=== PATIENT | male | born 1955 | race Caucasian/White ===

== ENCOUNTER 2020-01-09 11:20 | Outpatient (CLI) | payer OTHER, SELFPAY ==
--- NOTE | 2020-01-09 11:24 | ECG_ITS ---
Measurements Intervals [place] Rate: 62 P: 29 MT: 136 QRS: -7 QRSD: 89 T: 11 QT: 395 QTc: 401 Interpretive Statements SINUS RHYTHM RSR' IN V1 OR V2, CONSIDER RIGHT VENTRICULAR HYPERTROPHY OR RIGHT VCD BASELINE ARTIFACT- I, II, III, AVR, AVL, AVF BORDERLINE ECG Electronically Signed On 01-09-2020 13:09:14 CDT by Andrés Sanchez D.O.
[2020-01-09 11:45] LABS: Basophils Absolute Auto 0.1 K/mm3 (0.0-0.1); Basophils Percent Auto 0.6 % (0.2-1.2); Eosinophils Absolute Auto 0.3 K/mm3 (0-0.3); Hematocrit 43.5 % (42.0-52.0); Hemoglobin 14.5 g/dL (14.0-18.0); Immature Granulocyte Absolute 0.03 K/mm3 (0.00-0.031); Immature Granulocyte Percent A 0.4 % (0-0.5); Lymphocytes Absolute Auto 1.77 K/mm3 (0.9-3.2); Lymphocytes Percent Auto 21.4 % (18.3-44.2); Mean Corpuscular HGB Conc 33.3 g/dl (32-36); Mean Corpuscular Hemoglobin 31.4 pg (26-34); Mean Corpuscular Volume 94.2 fl (80-100); Mean Platelet Volume 9.6 fl (7.4-10.4); Monocytes Absolute Auto 0.7 K/mm3 (0.1-0.6); Monocytes Percent Auto 8.6 % (2.6-8.5); Neutrophils Absolute Auto 5.5 K/mm3 (1.3-6.7); Platelet Count Result 317 k/mm3 (150-375); Red Blood Count 4.62 M/mm3 (4.6-6.20); Red Cell Distribution Width 12.3 % (11.5-14.5); White Blood Count 8.3 K/mm3 (4.5-10.0)
[2020-01-09 11:57] LABS: INR 1.1; Prothrombin Time 13.4 Seconds (11.1-14.7)
[2020-01-09 11:58] LABS: Partial Thromboplastin Time 25.1 SECONDS (22.3-36.8)
[2020-01-09 12:01] LABS: Blood Urea Nitrogen 16 mg/dL (9-20); Calcium 9.4 mg/dL (8.4-10.2); Carbon Dioxide 26 mmol/L (22-30); Chloride 104 mmol/L (98-107); Estimated Glomerular Filt Rate > 60; Glucose 116 mg/dL (75-110); Potassium 4.5 mmol/L (3.4-5.0); Sodium 138 mmol/L (137-145)
== END 2020-01-09 11:21 | disposition home or self-care (01) ==
LOC: ANHSURGERY 11:24
PROVIDERS: PCP Internal Medicine; Visit Provider Urology
DX: N32.9 Bladder disorder, unspecified (principal); I10 Essential (primary) hypertension; R94.31 Abnormal electrocardiogram [ECG] [EKG]
CPT/HCPCS: 36415; 80048; 85025; 85610; 85730; 93005

== ENCOUNTER 2020-01-10 00:29 | Outpatient (CLI) | payer OTHER, SELFPAY ==
[2020-01-10 18:31] LABS: SARS-CoV-2 RNA PCR Negative
== END 2020-01-10 00:30 | disposition home or self-care (01) ==
LOC: ANHCOVIDDT 00:30
PROVIDERS: PCP Internal Medicine; Visit Provider Urology
DX: Z01.812 Encounter for preprocedural laboratory examination (principal); Z11.59 Encounter for screening for other viral diseases
CPT/HCPCS: 87635; C9803; U0003

== ENCOUNTER 2020-01-13 02:02 | Day surgery (SDC) | payer OTHER, SELFPAY ==
[2020-01-08 11:51] VITALS: BMI 31.3
--- NOTE | 2020-01-12 12:40 | WPDANESEPPF ---
Anes - Initial Pre Proc Eval Procedure: Operation Date: 01/13/20 10:30 Proposed Procedures p Trans Urethral Resection Bladder Tumor - Bora Salcido MD s Possible Holmium Laser Procedure - Bora Salcido MD Date/Time: 01/12/20 12:40 Surgeon: Bora Salcido MD Pre Op Diagnosis: Bladder Lesion N32.9 Patient Data Age: 64 Gender: M Height: 1.7 m Weight: 90.72 kg Allergies Allergy/AdvReac Type Severity Reaction Status Date / Time Penicillins Allergy Unknown Unknown Verified 01/13/20 08:38 Home Medications Medication Instructions Recorded Confirmed Type Co Q-10 200 mg PO DAILY 01/08/20 01/13/20 History L. gasseri-B. bifidum-B longum 1 cap PO DAILY 01/08/20 01/13/20 History [[place]] finasteride 5 mg PO DAILY 01/08/20 01/13/20 History fluticasone furoate-vilanterol 1 inh INHALATION HS 01/08/20 01/13/20 History [Breo Ellipta] lisinopril 30 mg PO DAILY 01/08/20 01/13/20 History metformin 1,000 mg PO DAILY 01/08/20 01/13/20 History montelukast 10 mg PO DAILY 01/08/20 01/13/20 History rosuvastatin 5 mg PO DAILY 01/08/20 01/13/20 History tamsulosin 0.4 mg PO DAILY 01/08/20 01/13/20 History Patient hx anesthesia problems: none Family hx anesthesia problems: none [facility] Past Medical History Medical History (Updated 01/12/20 @ 12:42 by Be Stapleton MD) Asthma BPH (benign prostatic hyperplasia) Diabetes HTN (hypertension) Hypercholesterolemia Obesity Surgical History Surgical History (Updated 01/12/20 @ 12:42 by Be Stapleton MD) Hx of spinal surgery Lumbar Surgery L4-5 Social History Social History Smoking packs per day: 0.5 Smoking cigarettes per day: 10.0 Years smoked: 15 Smoking pack-years: 7.50 Smoking status: Former smoker Tobacco type: cigarettes Additional smoking assessment comments: last smoked 1996 Alcohol intake: current Drinks per week: 7 Alcohol use details: 1 drink wine per night Substance use type: does not use Living arrangements: with family Gender identity (if verbalized by the patient): Male Spiritual care concerns: No Anes - Eval Final PreProcedure Day of Procedure 01/12/20 12:40 Patient weight: obese Heart: regular rate and rhythm Lungs: clear to auscultation and normal air movement Airway: Mallampati scale class II Neurological: alert and oriented Last oral intake: >/= 8 hours ASA classification: III Emergent: no Anesthetic plan: proceed Anesthesia type and monitoring: general LMA Informed Consent: The patient's anesthetic plan and its attendant risks and benefits were discussed with the patient/family/POA. Questions were solicited and answers provided to the satisfaction of the patient/family/POA.
[2020-01-13] VITALS (7 sets, daily range): BP systolic 118–150; BP diastolic 70–81; PULSE 66–76; RESP 10–16; TEMP 36.3–36.9; O2SAT 97–100
--- NOTE | 2020-01-13 07:18 | WPDHPUPDATE1 ---
History and Physical Update Update Date/Time: 01/13/20 07:18 History and Physical has been reviewed, including an updated exam of the patient. There are NO changes in the patient's condition. Risks, benefits, and alternatives have been discussed and questions answered. Patient agrees to proceed with procedure.
[2020-01-13] MEDS: LACTATED RINGERS 1,000 ML 30 ML IV CONT (08:57)
[2020-01-13 09:19] LABS: Glucose Point of Care 127 (65-105)
[2020-01-13] MEDS: levoFLOXacin 500 MG/D5W 100 ML 500 MG/100 ML BAG 100 MG IVPB (09:24)
[2020-01-13] MEDS: LIDOCAINE HCL 2% GEL UROJET 10 ML PKG MUCOUS MEM (09:34)
--- NOTE | 2020-01-13 09:59 | P.OP_ITS ---
Procedure Note - Detailed Date of procedure: 01/13/20 Pre-op diagnosis: Bladder Lesion N32.9 Post-op diagnosis: same (Apparent erosion of migrated left inguinal mesh to bladder) Procedure performed: patient was taken to the operative suite and correctly identified. Once anesthesia was obtained she was placed in the dorsal lithotomy position and prepped and draped in usual sterile fashion. Twenty-two Monegasque scope was inserted in the bladder. He does have some mild lateral lobe hypert rophy and a slightly elevated median bar. Upon entering the bladder the bladder is inspected entirety. Both ureteral orifices normal anatomic position. Along the left anterior lateral wall he has a lesion measuring approximately 1 cm which is irregular in nature. He has some edema around it. It does NOT have the typical appearance of papillary carcinoma. At this point a 24 Monegasque resectoscope sheath was inserted into the bladder. The lesion was resected and sent for pathology. It was noted that it appears to me that he has some mesh that his eroded into the bladder. There was some mild purulence coming from from the area where the mesh was visualized. This would explain his recurring UTIs. 2% viscous lidocaine was inserted into the urethra and a 16 Monegasque Coronel was placed. Will need did discuss formal excision of the mesh with possible resection of a slight amount of bladder. Anesthesia: GLMA Surgeon: Broa Salcido MD Drains: Yes Packing: No Pathology: yes Complications: No immediate complications Condition: stable Disposition: PACU
[2020-01-13 10:23] LABS: Glucose Point of Care 120 (65-105)
--- NOTE | 2020-01-13 10:39 | SUR.PHASEI ---
PT AWAKE AND ALERT. DENIES PAIN. STATES MODERATE URGE TO VOID. READY TO GO TO [place] AND HAVE A DRINK. MEETS ANES DISCHARGE CRITERIA.
== END 2020-01-13 12:12 | disposition home or self-care (01) ==
PROVIDERS: PCP Internal Medicine; Visit Provider Urology
PROC: 0TBB8ZZ Excision of Bladder, Via Natural or Artificial Opening Endoscopic (ICD-10-PCS; CPT 52224; principal; 2020-01-13 09:45)
DX: N30.20 Other chronic cystitis without hematuria (principal); N32.89 Other specified disorders of bladder; T83.718A Erosion of other implanted mesh to organ or tissue, initial encounter; Y83.8 Other surgical procedures as the cause of abnormal reaction of the patient, or of later complication, without mention of misadventure at the time of the procedure; I10 Essential (primary) hypertension; E78.00 Pure hypercholesterolemia, unspecified; E11.9 Type 2 diabetes mellitus without complications; N40.0 Benign prostatic hyperplasia without lower urinary tract symptoms; J45.909 Unspecified asthma, uncomplicated; E66.9 Obesity, unspecified; Z68.31 Body mass index [BMI] 31.0-31.9, adult; Z87.891 Personal history of nicotine dependence
CPT/HCPCS: 52224; 88305; A9270; J1956; J2405; J2704; J3010; J7120

== ENCOUNTER 2020-04-27 08:33 | Outpatient (CLI) | payer OTHER, SELFPAY ==
[2020-04-27 08:52] LABS: Basophils Absolute Auto 0.1 K/mm3 (0.0-0.1); Basophils Percent Auto 0.9 % (0.2-1.2); Eosinophils Absolute Auto 0.3 K/mm3 (0-0.3); Eosinophils Percent Auto 4.4 % (0-4.4); Hematocrit 43.3 % (42.0-52.0); Hemoglobin 14.7 g/dL (14.0-18.0); Immature Granulocyte Absolute 0.02 K/mm3 (0.00-0.031); Immature Granulocyte Percent A 0.3 % (0-0.5); Lymphocytes Absolute Auto 1.81 K/mm3 (0.9-3.2); Lymphocytes Percent Auto 30.8 % (18.3-44.2); Mean Corpuscular HGB Conc 33.9 g/dl (32-36); Mean Corpuscular Hemoglobin 31.5 pg (26-34); Mean Corpuscular Volume 92.9 fl (80-100); Mean Platelet Volume 9.3 fl (7.4-10.4); Monocytes Absolute Auto 0.5 K/mm3 (0.1-0.6); Monocytes Percent Auto 8.8 % (2.6-8.5); Neutrophils Absolute Auto 3.2 K/mm3 (1.3-6.7); Neutrophils Percent Auto 54.8 % (45.5-73.1); Platelet Count Result 304 k/mm3 (150-375); Red Blood Count 4.66 M/mm3 (4.6-6.20); Red Cell Distribution Width 11.8 % (11.5-14.5); White Blood Count 5.9 K/mm3 (4.5-10.0)
[2020-04-27 09:02] LABS: INR 0.9; Prothrombin Time 12.5 Seconds (11.1-14.7)
[2020-04-27 09:03] LABS: Anion Gap 10 mmol/L (8-16); Blood Urea Nitrogen 17 mg/dL (9-20); Calcium 9.3 mg/dL (8.4-10.2); Carbon Dioxide 28 mmol/L (22-30); Chloride 104 mmol/L (98-107); Estimated Glomerular Filt Rate > 60; Glucose 121 mg/dL (75-110); Partial Thromboplastin Time 24.7 SECONDS (22.3-36.8); Potassium 4.4 mmol/L (3.4-5.0); Sodium 142 mmol/L (137-145)
== END 2020-04-27 08:34 | disposition home or self-care (01) ==
LOC: ANHSURGERY 08:34
PROVIDERS: Anesthesiology; Urology; PCP Internal Medicine; Visit Provider Surgery
DX: K42.9 Umbilical hernia without obstruction or gangrene (principal); E11.9 Type 2 diabetes mellitus without complications; N32.9 Bladder disorder, unspecified; Z01.818 Encounter for other preprocedural examination
CPT/HCPCS: 36415; 80048; 85025; 85610; 85730; 86850; 86900; 86901; 87077; 87086; 87088; 87186

== ENCOUNTER 2020-05-01 01:02 | Outpatient (CLI) | payer OTHER, SELFPAY ==
[2020-05-02 21:19] LABS: SARS-CoV-2 RNA PCR Negative
== END 2020-05-01 01:03 | disposition home or self-care (01) ==
LOC: ANHCOVIDDT 01:03
PROVIDERS: PCP Internal Medicine; Visit Provider Surgery
DX: Z01.818 Encounter for other preprocedural examination (principal); Z20.828 Contact with and (suspected) exposure to other viral communicable diseases
CPT/HCPCS: 87635; C9803; U0003

== ENCOUNTER 2020-05-05 15:16 | Observation (INO) | payer OTHER, SELFPAY ==
[2020-04-22 10:35] VITALS: BMI 32.1
[2020-05-04] VITALS (15 sets, daily range): BP systolic 130–170; BP diastolic 68–85; PULSE 58–92; RESP 10–20; TEMP 36.1–36.9; O2SAT 95–100; BMI 32.0
[2020-05-04] MEDS: KETOROLAC 15 MG/ML VIAL (*BKC) IV PUSH (07:10)
[2020-05-04] MEDS: LACTATED RINGERS 1,000 ML 30 ML IV CONT ×2 (07:10→15:10)
[2020-05-04] MEDS: ACETAMINOPHEN 500 MG TABLET 1000 MG PO (07:11)
--- NOTE | 2020-05-04 07:11 | PM.IMHP ---
H&P: HPI History of Present Illness Date/Time: 05/04/20 07:11 Chief complaint: mesh infection,umbilical hernia, hx left ing repai Narrative: Jim Browne is a 64 year old male who presents for removal of mesh that is eroding into bladder. He had a laparoscopic left inguinal hernia repair 20 years ago and about 1 year ago began experiencing UTI's that could not be cleared. Cystoscopy revealed mesh eroding into bladder. Review of Systems Review of Systems: All systems reviewed & are unremarkable except as noted in HPI and below Constitutional: Constitutional: Denies chills, Denies fever(s), Denies headache(s) and Denies weight loss Eyes: Eyes: Denies change in vision ENT: Denies dizziness, Denies headache(s), Denies neck mass and Denies throat swelling Cardiovascular: Cardiovascular: Denies chest pain, Denies lightheadedness and Denies dyspnea Respiratory: Respiratory: Denies cough, Denies dyspnea and Denies wheezing Gastrointestinal: Gastrointestinal: Denies abdominal pain, Denies change in bowel habits, Denies nausea and Denies vomiting Genitourinary: Genitourinary: Denies hematuria and Denies dysuria Musculoskeletal: Musculoskeletal: Reports as per HPI Integumentary/Breasts: Skin/Breast: Reports as per HPI Neurologic: Denies dizziness and Denies headache(s) Allergic/Immunologic: Allergic/Immunologic: Denies throat swelling and Denies wheezing PMFSH Past Medical History Medical History Asthma BPH (benign prostatic hyperplasia) Diabetes HTN (hypertension) Hypercholesterolemia Obesity Surgical History Surgical History History of cholecystectomy History of hernia repair Hx of spinal surgery Lumbar Surgery L4-5 Family History Family History Father Leukemia Mother Cerebrovascular accident Social History Social History Smoking packs per day: 0.5 Smoking cigarettes per day: 10.0 Years smoked: 15 Smoking pack-years: 7.50 Smoking status: Former smoker Tobacco type: cigarettes Additional smoking assessment comments: quit 1996 Alcohol intake: current Drinks per week: 7 Substance use type: does not use Additional occupation/education comments: [employer] Gender identity (if verbalized by the patient): Male Spiritual care concerns: No Meds Home Medications and Allergies Home Medications Medication Instructions Recorded Confirmed Type Breo Ellipta 1 inh INHALATION HS 01/08/20 05/04/20 History Co Q-10 200 mg PO DAILY 01/08/20 05/04/20 History [facility] Colon Health 1 cap PO DAILY 01/08/20 05/04/20 History finasteride 5 mg PO DAILY 01/08/20 05/04/20 History lisinopril 30 mg PO DAILY 01/08/20 05/04/20 History metformin 1,000 mg PO DAILY 01/08/20 05/04/20 History montelukast 10 mg PO DAILY 01/08/20 05/04/20 History rosuvastatin 5 mg PO DAILY 01/08/20 05/04/20 History tamsulosin 0.4 mg PO DAILY 01/08/20 05/04/20 History Allergies Allergy/AdvReac Type Severity Reaction Status Date / Time Penicillins Allergy Unknown Unknown Verified 05/04/20 06:51 sulfamethoxazole Allergy skin Verified 05/04/20 06:51 [From Bactrim] reaction, burning trimethoprim [From Bactrim] Allergy skin Verified 05/04/20 06:51 reaction, burning Exam Const: General: no acute distress and alert Orientation/consciousness: patient oriented x3 HENMT: Head: normocephalic and atraumatic Ears: hearing grossly normal bilaterally General nose exam: Normal nares present Mouth: Yes Normal oral and palatal mucosa present Eyes: Periorbital: periorbital findings normal Sclera: sclerae normal EOM: EOMs intact bilaterally Neck: Neck: normal visual inspection, no lymphadenopathy and trachea midline Chest: Chest palpation & inspection
--- NOTE | 2020-05-04 07:15 | WPDHPUPDATE1 ---
History and Physical Update Update Date/Time: 05/04/20 07:15 History and Physical has been reviewed, including an updated exam of the patient. There are NO changes in the patient's condition. Risks, benefits, and alternatives have been discussed and questions answered. Patient agrees to proceed with procedure.
--- NOTE | 2020-05-04 07:34 | PM.IMHP ---
H&P: HPI History of Present Illness Date/Time: 05/04/20 07:34 Chief complaint: mesh infection,umbilical hernia, hx left ing repai Narrative: Jim Browne is a 64 year old male with mesh invaded into bladder and right hydrocele. Review of Systems Review of Systems: All systems reviewed & are unremarkable except as noted in HPI and below PMFSH Past Medical History Medical History (Updated 05/04/20 @ 07:36 by Bora Salcido MD) Asthma BPH (benign prostatic hyperplasia) Diabetes HTN (hypertension) Hypercholesterolemia Obesity Surgical History Surgical History History of cholecystectomy History of hernia repair Hx of spinal surgery Lumbar Surgery L4-5 Family History Family History Father Leukemia Mother Cerebrovascular accident Social History Social History Smoking packs per day: 0.5 Smoking cigarettes per day: 10.0 Years smoked: 15 Smoking pack-years: 7.50 Smoking status: Former smoker Tobacco type: cigarettes Additional smoking assessment comments: quit 1996 Alcohol intake: current Drinks per week: 7 Substance use type: does not use Additional occupation/education comments: [employer], [employer] Gender identity (if verbalized by the patient): Male Spiritual care concerns: No Meds Home Medications and Allergies Home Medications Medication Instructions Recorded Confirmed Type Breo Ellipta 1 inh INHALATION HS 01/08/20 05/04/20 History Co Q-10 200 mg PO DAILY 01/08/20 05/04/20 History [facility] Colon Health 1 cap PO DAILY 01/08/20 05/04/20 History finasteride 5 mg PO DAILY 01/08/20 05/04/20 History lisinopril 30 mg PO DAILY 01/08/20 05/04/20 History metformin 1,000 mg PO DAILY 01/08/20 05/04/20 History montelukast 10 mg PO DAILY 01/08/20 05/04/20 History rosuvastatin 5 mg PO DAILY 01/08/20 05/04/20 History tamsulosin 0.4 mg PO DAILY 01/08/20 05/04/20 History Allergies Allergy/AdvReac Type Severity Reaction Status Date / Time Penicillins Allergy Unknown Unknown Verified 05/04/20 06:51 sulfamethoxazole Allergy skin Verified 05/04/20 06:51 [From Bactrim] reaction, burning trimethoprim [From Bactrim] Allergy skin Verified 05/04/20 06:51 reaction, burning Vital Signs Vital Signs - 24 hr 05/04/20 07:22 Temperature 36.2 C L Pulse Rate 58 L Respiratory Rate 18 Blood Pressure 166/82 H Pulse Oximetry 98 Exam Const: General: cooperative HENMT: Head: normal to inspection General nose exam: Normal external nose present Eyes: General: appearance normal, both eyes and all related structures Neck: Neck: normal visual inspection Resp: Effort & Inspection: normal respiratory effort Cardio: Rate: regular rate GI: Inspection: normal to inspection Assessment and Plan Assessment and plan (1) Infected hernioplasty mesh: Qualifiers: Encounter type: initial encounter Qualified Code(s): T85.79XA - Infection and inflammatory reaction due to other internal prosthetic devices, implants and grafts, initial encounter Code(s): T85.79XA - Infection and inflammatory reaction due to other internal prosthetic devices, implants and grafts, initial encounter Status: Acute Assessment and Plan: excision by Dr Apodaca and possible bladder repair by dr Salcido (2) Right hydrocele: Code(s): N43.3 - Hydrocele, unspecified Status: Acute Assessment and Plan: right hydrocelectomy
--- NOTE | 2020-05-04 07:37 | WPDHPUPDATE1 ---
History and Physical Update Update Date/Time: 05/04/20 07:37 History and Physical has been reviewed, including an updated exam of the patient. There are NO changes in the patient's condition. Risks, benefits, and alternatives have been discussed and questions answered. Patient agrees to proceed with procedure.
[2020-05-04 07:41] LABS: Glucose Point of Care 143 (65-105)
--- NOTE | 2020-05-04 08:10 | WPDANESEPP ---
Anes - Eval Pre Procedure Procedure: Operation Date: 05/04/20 08:30 Proposed Procedures p Robotic Assisted Laparoscopic Removal of Infected Left Inguinal Mesh, Possible Recurrent Left Inguinal Hernia Repair with Biologic Mesh, - DO anika Tom Umbilical Hernia Repair - DO anika Tom Cystoscopy, Trans Urethral Resection Bladder Tumor - Bora Salcido MD s Possible Holmium Laser Of Foreign Body - Bora Salcido MD s Right Hydrocelectomy - Bora Salcido MD Date/Time: 05/04/20 08:10 Preop Diagnosis: mesh infection, umbilical hernia Pre Op Diagnosis: mesh infection,umbilical hernia, hx left ing repai Patient Data Age: 64 Gender: M Height: 5 ft 7 in Weight: 92.7 kg Last Vital Signs Temp 36.2 C L 05/04/20 07:22 Pulse 58 L 05/04/20 07:22 Resp 18 05/04/20 07:22 BP 166/82 H 05/04/20 07:22 Pulse Ox 98 05/04/20 07:22 Allergies Allergy/AdvReac Type Severity Reaction Status Date / Time Penicillins Allergy Unknown Unknown Verified 05/04/20 06:51 sulfamethoxazole Allergy skin Verified 05/04/20 06:51 [From Bactrim] reaction, burning trimethoprim [From Bactrim] Allergy skin Verified 05/04/20 06:51 reaction, burning Home Medications Medication Instructions Recorded Confirmed Type Breo Ellipta 1 inh INHALATION HS 01/08/20 05/04/20 History Co Q-10 200 mg PO DAILY 01/08/20 05/04/20 History [facility] AOMi 1 cap PO DAILY 01/08/20 05/04/20 History finasteride 5 mg PO DAILY 01/08/20 05/04/20 History lisinopril 30 mg PO DAILY 01/08/20 05/04/20 History metformin 1,000 mg PO DAILY 01/08/20 05/04/20 History montelukast 10 mg PO DAILY 01/08/20 05/04/20 History rosuvastatin 5 mg PO DAILY 01/08/20 05/04/20 History tamsulosin 0.4 mg PO DAILY 01/08/20 05/04/20 History Laboratory Tests 05/04/20 07:38 POC Capillary Glucose 143 mg/dl H mg/dl (65-105) ECG: Interpretive Statements SINUS RHYTHM RSR' IN V1 OR V2, CONSIDER RIGHT VENTRICULAR HYPERTROPHY OR RIGHT VCD BASELINE ARTIFACT- I, II, III, AVR, AVL, AVF BORDERLINE ECG Electronically Signed On 01-09-2020 13:09:14 CDT by Andrés Sanchez D.O. Patient hx anesthesia problems: none Family hx anesthesia problems: none [facility] Past Medical History Medical History (Updated 05/04/20 @ 07:36 by Bora Salcido MD) Asthma BPH (benign prostatic hyperplasia) Diabetes HTN (hypertension) Hypercholesterolemia Obesity Surgical History Surgical History History of cholecystectomy History of hernia repair Hx of spinal surgery Lumbar Surgery L4-5 Family History Family History Father Leukemia Mother Cerebrovascular accident Social History Social History Smoking packs per day: 0.5 Smoking cigarettes per day: 10.0 Years smoked: 15 Smoking pack-years: 7.50 Smoking status: Former smoker Tobacco type: cigarettes Additional smoking assessment comments: quit 1996 Alcohol intake: current Drinks per week: 7 Substance use type: does not use Additional occupation/education comments: [employer] Gender identity (if verbalized by the patient): Male Spiritual care concerns: No Exam Day of Procedure 05/04/20 08:10
--- NOTE | 2020-05-04 08:18 | P.PNAN_ITS ---
Anes - Eval Final PreProcedure Day of Procedure 05/04/20 08:18 Patient weight: obese Heart: regular rate and rhythm Lungs: clear to auscultation Airway: Mallampati scale class II Neurological: alert and oriented Last oral intake: >/= 8 hours ASA classification: III Emergent: no Anesthetic plan: proceed Anesthesia type and monitoring: general ETT and standard monitoring Informed Consent: The patient's anesthetic plan and its attendant risks and be nefits were discussed with the patient/family/POA. Questions were solicited and answers provided to the satisfaction of the patient/family/POA.
[2020-05-04] MEDS: ceFAZolin 2 GM/D5W 50 ML 2 GM/50 ML BAG IVPB (08:27)
[2020-05-04] MEDS: ceFAZolin SODIUM 1 GM VIAL IV PUSH (12:29)
[2020-05-04] MEDS: LIDOCAINE HCL 1% LOCAL INJ 20 ML VIAL 50 ML INFILTRATE (14:36)
--- NOTE | 2020-05-04 14:50 | PM.PROC ---
Procedure Note - Detailed Date of procedure: 05/04/20 Pre-op diagnosis: mesh infection,umbilical hernia, hx left ing repai Post-op diagnosis: other (Recurrent Indirect LIH, Direct RIH, Umbilical hernia, Left cord lipoma, Infected inguinal hernia mesh) Procedure performed: 1. Robotic assisted laparoscopic removal of infected left inguinal hernia mesh 2. Robotic assisted laparoscopic repair of recurrent left inguinal hernia with Phasix ST mesh 3. Robotic assisted laparoscopic repair of right inguinal hernia with Phasix ST mesh 4. Open umbilical hernia repair Description of procedure: Procedure as well as risks, benefits, and alternatives were discussed with the patient. Written consent was obtained and placed in chart prior to procedure. Patient was brought back to surgical suite. He was placed supine on operating table. Time-out was done to confirm patient and procedure. His abdomen was then prepped and draped in sterile fashion using chlorhexidine prep. His scrotum and penis was prepped with Betadine prep. An 8 mm incision was made in the left lateral abdomen and a 5 mm Optiview trocar was advanced through the abdominal layers under direct visualization. Once inside the abdominal cavity, carbon dioxide insufflation was used to create a pneumoperitoneum. The abdomen was inspected and no significant abnormalities were identified. An 8 mm incision was made in the right lateral abdomen and an 8 mm trocar was inserted under direct visualization. Another 8 mm incision was made in the supraumbilical region and an 8 mm trocar was inserted under direct visualization. A 5 mm incision was then made in the left upper quadrant and a 5 mm port was placed as an assist port in this location. The patient was placed in Trendelenburg position. The area of the prior left inguinal hernia repair was identified and there was some sigmoid colon scarred up to this location. The robotic arms were brought up to the patient's bedside and secured to the ports. The camera and instruments were then inserted and then I moved over to the robotic console. I carefully inspected the abdominal cavity. The sigmoid colon was densely adherent up to the area of the prior left inguinal hernia repair. This was carefully taken down using blunt dissection and sharp dissection with scissors and electrocautery. Care was taken not to injure the bowel while dissecting this. Eventually the sigmoid colon was able to be completely taken down from this area. I then began creating a preperitoneal pocket to enter into the space of Retzius and develop a plane where the prior hernia repair had been performed. Care was taken to identify the bladder and carefully take this down as I dissected caudally toward the pubic arch and Mehrdad's ligament. I then also identified the inferior epigastric vessels and continued this dissection along the preperitoneal plane to dissect the mesh free from the inferior epigastric vessels and cord contents. With careful dissection I was able to completely free the mesh up from the myopectineal orifice. I then had to carefully dissect the mesh free from the left side of the dome of the bladder. There were several metal clips around this area that had to be removed as well. Using scissors with electrocautery, I was able to carefully free up the mesh from most of the bladder. I then identified the location on the left side of the dome of the bladder where the mesh was completely eroding into the lumen of the bladder. The mesh was dissected free from this location which left a 2 cm x 3 cm hole in the bladder. The bladder was filled with saline through the Coronel catheter and this was clearly evident that it was leaking from this location. The mesh was placed in an Endo-Catch bag to remove at the end of the procedure. At this point, Dr. Salcido then proceeded with repair of the cystotomy. Please refer to his operative report for details. After the bladder was repaired, I then resumed m
--- NOTE | 2020-05-04 15:00 | PM.PROC ---
Procedure Note - Detailed Date of procedure: 05/04/20 Pre-op diagnosis: mesh infection,umbilical hernia, hx left ing repai right hydrocele Post-op diagnosis: same Procedure performed: Robotic assisted closure of cystotomy, right hydrocelectomy, right orchiopexy Description of procedure: Patient has a known mesh infection with involvement of the lateral aspect of the bladder. He also has a known right hydrocele. He is to undergo exploration with robotic assisted removal of this mesh by Dr. Apodaca as well as umbilical hernia repair. I will then proceed with closure of the cystotomy as well as the right hydrocelectomy and orchiopexy. Patient was taken to the operative suite and correctly identified by Dr. Shanti harris. He went ahead and then placed on the robotic ports and did his portion the procedure with excision of the mesh. At that point time there was noted to be a cystotomy where the mesh had involved the bladder. We went ahead and closed in 3 layers. The 1st layer was with a 2 0 Vicryl. Second layer and 3rd layers were with V lock sutures. It was noted that he had another small cystotomy just lateral to this larger 1. This measured approximately a cm. This also was closed in 2 layers using 2 0 Vicryl. There appeared to be good approximation of the mucosa as well as muscularis of the bladder. Patient had been filled with 250 cc is normal saline. There was no evidence of any gross extravasation. Coronel catheter was in place. Dr. Moser. Then completed his hernia repair as well as umbilical hernia repair. After that was completed I performed the hydrocelectomy by prepped and draped in the right hemiscrotum sterile fashion. Transverse incision was made carried down to the tunica layers. The hydrocele sac was then brought out into the operative field. It was incised. 200 cc of straw-colored fluid was removed. We excised the extra sac. Edges were fulgurated. We placed 1/4 inch Michael drain into the right hemiscrotum. We then did an orchiopexy using 3 0 Monocryl. Stitches were placed along the medial lateral and inferior aspect of the testicle. Tunica was then closed using 3 0 chromic. Skin was also closed through 0 chromic in a running fashion. Anesthetized the skin using 1% lidocaine. Lap count needle count sponge counts were correct at termination my portion of the procedure. Anesthesia: GETA Surgeon: Bora Salcido MD Drains: Yes Packing: No Pathology: yes Complications: No immediate complications Condition: stable Disposition: PACU
[2020-05-04] MEDS: fentaNYL CITRATE INJ (*CRX) 100 MCG/2 ML VIAL 25 MCG IV PUSH ×4 (15:40→16:00)
[2020-05-04 15:45] LABS: Glucose Point of Care 142 (65-105)
[2020-05-04] MEDS: HYDROcodone/acetaminophen (*CRX) 5-325 MG TABLET 1 TAB PO (17:59)
[2020-05-04] MEDS: LACTATED RINGERS 1,000 ML 100 ML IV CONT (17:59)
[2020-05-04 21:34] LABS: Glucose Point of Care 181 (65-105)
[2020-05-04] MEDS: HYDROcodone/acetaminophen (*CRX) 7.5-325 MG TABLET 1 TAB PO (21:41)
[2020-05-05] VITALS (7 sets, daily range): BP systolic 119–151; BP diastolic 59–67; PULSE 77–89; RESP 16–20; TEMP 36.3–37.1; O2SAT 92–96
[2020-05-05] MEDS: HYDROcodone/acetaminophen (*CRX) 7.5-325 MG TABLET 1 TAB PO ×2 (03:56→09:04)
[2020-05-05 06:27] LABS: Anion Gap 5 mmol/L (8-16); Blood Urea Nitrogen 15 mg/dL (9-20); Calcium 8.5 mg/dL (8.4-10.2); Carbon Dioxide 28 mmol/L (22-30); Chloride 104 mmol/L (98-107); Estimated CRCL calculation 80 ml/min; Estimated Glomerular Filt Rate > 60; Glucose 134 mg/dL (75-110); Potassium 4.4 mmol/L (3.4-5.0); Sodium 137 mmol/L (137-145)
[2020-05-05 06:29] LABS: Hematocrit 37.8 % (42.0-52.0); Hemoglobin 12.7 g/dL (14.0-18.0); Mean Corpuscular HGB Conc 33.6 g/dl (32-36); Mean Corpuscular Hemoglobin 31.1 pg (26-34); Mean Corpuscular Volume 92.6 fl (80-100); Mean Platelet Volume 9.6 fl (7.4-10.4); Platelet Count Result 281 k/mm3 (150-375); Red Blood Count 4.08 M/mm3 (4.6-6.20); Red Cell Distribution Width 12.2 % (11.5-14.5); White Blood Count 10.8 K/mm3 (4.5-10.0)
--- NOTE | 2020-05-05 07:50 | WPDANESPN ---
Anes - Prog Note Post-Op Date/Time: 05/05/20 07:50 Cardiovascular status: normal Respiratory status: normal Airway patency: baseline Mental status: baseline Post-Op hydration status: normal Vital Signs: Last Vital Signs Temp 37.1 C 05/05/20 02:00 Pulse 82 05/05/20 02:00 Resp 16 05/05/20 02:00 BP 134/61 05/05/20 02:00 Pulse Ox 95 05/05/20 02:00 Pain Score (VAS): 5 I/O: Intake & Output 05/04/20 05/04/20 05/05/20 15:59 23:59 07:59 Intake Total 50 700 1000 Output Total 100 40 Balance -50 700 960 Laboratory Tests 05/05/20 05:19 05/05/20 05:19 05/04/20 05/04/20 05/05/20 15:42 21:24 05:19 WBC 10.8 H RBC 4.08 L Hgb 12.7 L Hct 37.8 L MCV 92.6 MCH 31.1 MCHC 33.6 RDW 12.2 Plt Count 281 MPV 9.6 Sodium Potassium Chloride Carbon Dioxide Anion Gap BUN Creatinine Estim Creat Clear Calc Estimated GFR Glucose POC Capillary Glucose 142 H 181 H Calcium 05/05/20 05:19 WBC RBC Hgb Hct MCV MCH MCHC RDW Plt Count MPV Sodium 137 Potassium 4.4 Chloride 104 Carbon Dioxide 28 Anion Gap 5 L BUN 15 Creatinine 0.90 Estim Creat Clear Calc 80 Estimated GFR > 60 Glucose 134 H POC Capillary Glucose Calcium 8.5 Post-procedural complaints: none Patient Feedback: Patient satisfied with anesthetic care.
[2020-05-05] MEDS: ENOXAPARIN 40 MG/0.4 ML SYRINGE SUB-Q (08:47)
[2020-05-05] MEDS: lisinopriL 10 MG TABLET 30 MG PO (08:47)
[2020-05-05] MEDS: ROSUVASTATIN 5 MG TABLET PO (08:47)
[2020-05-05] MEDS: MONTELUKAST SODIUM 10 MG TABLET PO (08:48)
[2020-05-05] MEDS: TAMSULOSIN HCL 0.4 MG CAPSULE PO (08:48)
[2020-05-05] MEDS: FINASTERIDE 5 MG TABLET PO (08:48)
[2020-05-05] MEDS: metFORMIN HCL XR 500 MG TAB.SR.24H 1000 MG PO (08:48)
--- NOTE | 2020-05-05 09:12 | PM.PNGS ---
Progress Note: A&P Assessment and Plan (1) Umbilical hernia: Qualifiers: Obstruction and gangrene presence: without obstruction or gangrene Qualified Code(s): K42.9 - Umbilical hernia without obstruction or gangrene Code(s): K42.9 - Umbilical hernia without obstruction or gangrene Status: Acute Assessment and Plan: Will add Ibuprofen to help with pain control. Slowly increase activity. Will reassess later today. Could go home if pain better controlled. (2) Infected hernioplasty mesh: Qualifiers: Encounter type: initial encounter Qualified Code(s): T85.79XA - Infection and inflammatory reaction due to other internal prosthetic devices, implants and grafts, initial encounter Code(s): T85.79XA - Infection and inflammatory reaction due to other internal prosthetic devices, implants and grafts, initial encounter Status: Acute (3) Recurrent left inguinal hernia: Code(s): K40.91 - Unilateral inguinal hernia, without obstruction or gangrene, recurrent Status: Acute (4) Right inguinal hernia: Code(s): K40.90 - Unilateral inguinal hernia, without obstruction or gangrene, not specified as recurrent Status: Acute Subjective Subjective Date/Time Seen: 05/05/20 09:12 Pain still persists. Otherwise doing well. Coronel in place. Exam GI: Inspection: incision (C/D/I) and other (KJ serosanguinous) GI Palp: Yes Tenderness to palpation present (GI) (incisional) Objective Data Vital Signs Vital Signs: Vital Signs - 24 hr 05/04/20 15:10 05/04/20 15:25 05/04/20 15:40 Temperature 36.6 C Pulse Rate 81 73 78 Respiratory Rate 10 L 11 L 13 Blood Pressure 130/72 158/76 H 161/82 H Pulse Oximetry 100 100 96 05/04/20 15:59 05/04/20 16:15 05/04/20 16:30 Temperature Pulse Rate 66 70 76 Respiratory Rate 12 12 14 Blood Pressure 151/82 H 155/85 H 152/78 H Pulse Oximetry 95 97 96 05/04/20 16:45 05/04/20 17:15 05/04/20 17:45 Temperature 36.1 C L 36.2 C L Pulse Rate 68 80 89 Respiratory Rate 12 18 18 Blood Pressure 149/71 H 170/74 H 170/77 H Pulse Oximetry 98 97 98 05/04/20 18:15 05/04/20 18:22 05/04/20 20:40 Temperature 36.2 C L Pulse Rate 92 Respiratory Rate 18 Blood Pressure 156/80 H Pulse Oximetry 99 99 98 05/04/20 22:00 05/04/20 22:47 05/05/20 02:00 Temperature 36.9 C 36.9 C 37.1 C Pulse Rate 90 90 82 Respiratory Rate 20 20 16 Blood Pressure 153/68 H 153/68 H 134/61 Pulse Oximetry 98 98 95 05/05/20 06:00 Temperature 36.9 C Pulse Rate 81 Respiratory Rate 18 Blood Pressure 125/60 Pulse Oximetry 95 Intake/Output Intake/Output: Intake & Output 05/02/20 05/03/20 05/04/20 05/05/20 23:59 23:59 23:59 23:59 Intake Total 750 1700 Output Total 100 1240 Balance 650 460 Meds/Results Medications: Active Medications Generic Name Dose Route Start Last Admin Trade Name Freq PRN Reason Stop Dose Admin Acetaminophen 650 mg 05/04/20 17:02 Acetaminophen 325 Mg Tablet PO Q6H PRN Mild Pain (1-3) or Fever Hydrocodone Bitart/Acetaminophen 1 tab 05/04/20 17:02 05/04/20 17:59 Hydrocodone/Acetaminophen (*Crx) 5-325 Mg Tablet PO 1 tab Q4H PRN Administration Pain Rated 4-6 Hydrocodone Bitart/Acetaminophen 1 tab 05/04/20 17:02 05/05/20 09:04 Hydrocodone/Acetaminophen (*Crx) 7.5-325 Mg Tablet PO 1 tab Q4H PRN Administration Pain Rated 7-10 Budesonide/Formoterol Fumarate 2 puff 05/04/20 20:00 05/04/20 20:37 Budesonide/Form 160-4.5 Mcg (*Sp) INHALATION 2 puff Q12HRT JULIAN Administration Enoxaparin Sodium 40 mg 05/05/20 09:00 05/05/20 08:47 Enoxaparin 40 Mg/0.4 Ml Syringe SUB-Q 40 mg DAILY JULIAN Administration Finasteride 5 mg 05/05/20 09:00 05/05/20 08:48 Finasteride 5 Mg Tablet PO 5 mg DAILY JULIAN Administration Ibuprofen 800 mg 05/05/20 09:15 Ibuprofen 400 Mg Tablet PO Q8H JULIAN Lisinopril 30 mg 05/05/20 09:00 05/05/20 08:47
[2020-05-05 09:25] LABS: Glucose Point of Care 137 (65-105)
[2020-05-05 12:58] LABS: Glucose Point of Care 125 (65-105)
[2020-05-05] MEDS: IBUPROFEN 400 MG TABLET 800 MG PO ×2 (12:58→21:41)
[2020-05-05] MEDS: HYDROcodone/acetaminophen (*CRX) 5-325 MG TABLET 1 TAB PO (12:59)
--- NOTE | 2020-05-05 12:59 | WPDUROPN2 ---
Progress Note: A&P Assessment and Plan (1) Recurrent left inguinal hernia: Code(s): K40.91 - Unilateral inguinal hernia, without obstruction or gangrene, recurrent Status: Acute Assessment and Plan: status post excision of infected mesh with repair of left inguinal hernia and closure of cystotomy. Progressing well overall but still with some discomfort. May require another night stay. Send KJ fluid for urine creatinine. Make decision regarding removal prior to discharge. Coronel catheter will need to stay in a minimum of 10 days with follow-up catheter cystogram. (2) Right hydrocele: Code(s): N43.3 - Hydrocele, unspecified Status: Acute Assessment and Plan: Status post right hydrocelectomy. Continue with Michael drain for the time being. Patient will be able to remove that at home the next day or 2 if minimal drainage. Subjective Subjective Date/Time Seen: 05/05/20 12:59 Post Op day: 1 Principal diagnosis: Infected hernia mesh involving bladder Interval history: postop day 1. robotic assisted excision of infected mesh with hernia repair closure of cystotomy as well as right hydrocelectomy. Not surprisingly still having some abdominal discomfort. Coronel is draining clear urine at this time Review of Systems Review of Systems: All systems reviewed & are unremarkable except as noted in HPI and below Exam GI: GI Palp: Yes Soft to palpation ( slightly distended) Objective Data Vital Signs Vital Signs: Vital Signs - 24 hr 05/04/20 15:10 05/04/20 15:25 05/04/20 15:40 Temperature 36.6 C Pulse Rate 81 73 78 Respiratory Rate 10 L 11 L 13 Blood Pressure 130/72 158/76 H 161/82 H Pulse Oximetry 100 100 96 05/04/20 15:59 05/04/20 16:15 05/04/20 16:30 Temperature Pulse Rate 66 70 76 Respiratory Rate 12 12 14 Blood Pressure 151/82 H 155/85 H 152/78 H Pulse Oximetry 95 97 96 05/04/20 16:45 05/04/20 17:15 05/04/20 17:45 Temperature 36.1 C L 36.2 C L Pulse Rate 68 80 89 Respiratory Rate 12 18 18 Blood Pressure 149/71 H 170/74 H 170/77 H Pulse Oximetry 98 97 98 05/04/20 18:15 05/04/20 18:22 11/10/20 20:40 Temperature 36.2 C L Pulse Rate 92 Respiratory Rate 18 Blood Pressure 156/80 H Pulse Oximetry 99 99 98 05/04/20 22:00 05/04/20 22:47 05/05/20 02:00 Temperature 36.9 C 36.9 C 37.1 C Pulse Rate 90 90 82 Respiratory Rate 20 20 16 Blood Pressure 153/68 H 153/68 H 134/61 Pulse Oximetry 98 98 95 05/05/20 06:00 05/05/20 09:24 05/05/20 09:57 Temperature 36.9 C 36.7 C Pulse Rate 81 80 77 Respiratory Rate 18 18 Blood Pressure 125/60 151/67 H Pulse Oximetry 95 94 95 Intake/Output Intake/Output: Intake & Output 05/02/20 05/03/20 05/04/20 05/05/20 23:59 23:59 23:59 23:59 Intake Total 750 1940 Output Total 100 1240 Balance 650 700 Meds/Results Medications: Active Medications Generic Name Dose Route Start Last Admin Trade Name Freq PRN Reason Stop Dose Admin Acetaminophen 650 mg 05/04/20 17:02 Acetaminophen 325 Mg Tablet PO Q6H PRN Mild Pain (1-3) or Fever Hydrocodone Bitart/Acetaminophen 1 tab 05/04/20 17:02 05/04/20 17:59 Hydrocodone/Acetaminophen (*Crx) 5-325 Mg Tablet PO 1 tab Q4H PRN Administration Pain Rated 4-6 Hydrocodone Bitart/Acetaminophen 2 tab 05/05/20 12:46 Hydrocodone/Acetaminophen (*Crx) 5-325 Mg Tablet PO Q4H PRN Pain Rated 7-10 Budesonide/Formoterol Fumarate 2 puff 05/04/20 20:00 05/05/20 09:24 Budesonide/Form 160-4.5 Mcg (*Sp) INHALATION 2 puff Q12HRT JULIAN Administration Enoxaparin Sodium 40 mg 05/05/20 09:00 05/05/20 08:47 Enoxaparin 40 Mg/0.4 Ml Syringe SUB-Q 40 mg DAILY JULIAN Administration Finasteride 5 mg 05/05/20 09:00 05/05/20 08:48 Finasteride 5 Mg Tablet PO 5 mg DAILY JULIAN Administration Ibuprofen 800 mg 05/05/20 13:00 Ibuprofen 400 Mg Tablet PO Q8HR JULIAN Lisinopril 30 mg 05/05/20 09:00 05/05/20
[2020-05-05 14:05] LABS: Creatinine Urine < 3.2 mg/dL
[2020-05-05] MEDS: HYDROcodone/acetaminophen (*CRX) 5-325 MG TABLET 2 TAB PO (20:05)
[2020-05-05 23:29] LABS: Glucose Point of Care 136 (65-105)
[2020-05-06 06:00] VITALS: BP 139/64; PULSE 70; RESP 18; TEMP 36.7; O2SAT 96
--- NOTE | 2020-05-06 06:11 | WPDUROPN2 ---
Progress Note: A&P Assessment and Plan (1) Right hydrocele: Code(s): N43.3 - Hydrocele, unspecified Status: Acute Assessment and Plan: The minimal to no drainage from Crowder. We will remove Crowder today. Instructed on ice pack to scrotum. (2) Infected hernioplasty mesh: Qualifiers: Encounter type: initial encounter Qualified Code(s): T85.79XA - Infection and inflammatory reaction due to other internal prosthetic devices, implants and grafts, initial encounter Code(s): T85.79XA - Infection and inflammatory reaction due to other internal prosthetic devices, implants and grafts, initial encounter Status: Acute Assessment and Plan: Status post excision with hernia repair as well as closure of cystotomy. Will DC KJ later this afternoon prior to discharge. Patient is to go home with Coronel catheter and will have a catheter cystogram scheduled in about 10 days. Would like patient to be on a prophylactic antibiotic such as Bactrim 1 pill daily until the catheter comes out. Subjective Subjective Date/Time Seen: 05/06/20 06:11 Post Op day: 2 Principal diagnosis: Robbie Brock mesh invading bladder, right hydrocele recurrent inguinal herni Interval history: Doing much better today regarding pain control. KJ with minimal drainage. Creatinine more consistent with a serous type consistency. Review of Systems Review of Systems: All systems reviewed & are unremarkable except as noted in HPI and below Exam Const: General: cooperative GI: GI Palp: Yes Soft to palpation : Scrotum: scrotal swelling Urinary Catheter: Urinary Catheter: patent and draining and urine clear Objective Data Vital Signs Vital Signs: Vital Signs - 24 hr 05/05/20 09:24 05/05/20 10:00 05/05/20 14:00 Temperature 36.7 C 37.0 C Pulse Rate 80 77 89 Respiratory Rate 18 20 Blood Pressure 151/67 H 119/59 L Pulse Oximetry 94 95 92 05/05/20 21:02 05/05/20 22:00 Temperature 36.3 C L Pulse Rate 80 87 Respiratory Rate 20 18 Blood Pressure 143/64 H Pulse Oximetry 95 96 Intake/Output Intake/Output: Intake & Output 05/03/20 05/04/20 05/05/20 05/06/20 23:59 23:59 23:59 23:59 Intake Total 750 3520 Output Total 100 2685 Balance 650 835 Meds/Results Medications: Active Medications Generic Name Dose Route Start Last Admin Trade Name Freq PRN Reason Stop Dose Admin Acetaminophen 650 mg 05/04/20 17:02 Acetaminophen 325 Mg Tablet PO Q6H PRN Mild Pain (1-3) or Fever Hydrocodone Bitart/Acetaminophen 1 tab 05/04/20 17:02 05/05/20 12:59 Hydrocodone/Acetaminophen (*Crx) 5-325 Mg Tablet PO 1 tab Q4H PRN Administration Pain Rated 4-6 Hydrocodone Bitart/Acetaminophen 2 tab 05/05/20 12:46 05/05/20 20:05 Hydrocodone/Acetaminophen (*Crx) 5-325 Mg Tablet PO 2 tab Q4H PRN Administration Pain Rated 7-10 Budesonide/Formoterol Fumarate 2 puff 05/04/20 20:00 05/05/20 20:48 Budesonide/Form 160-4.5 Mcg (*Sp) INHALATION 2 puff Q12HRT JULIAN Administration Enoxaparin Sodium 40 mg 05/05/20 09:00 05/05/20 08:47 Enoxaparin 40 Mg/0.4 Ml Syringe SUB-Q 40 mg DAILY JULIAN Administration Finasteride 5 mg 05/05/20 09:00 05/05/20 08:48 Finasteride 5 Mg Tablet PO 5 mg DAILY JULIAN Administration Ibuprofen 800 mg 05/05/20 13:00 05/05/20 21:41 Ibuprofen 400 Mg Tablet PO 800 mg Q8HR JULIAN Administration Lisinopril 30 mg 05/05/20 09:00 05/05/20 08:47 Lisinopril 10 Mg Tablet PO 30 mg DAILY JULIAN Administration Metformin HCl 1,000 mg 05/05/20 09:00 05/05/20 08:48 Metformin Hcl Xr 500 Mg Tab.Sr.24h PO 1,000 mg DAILY JULIAN Administration Montelukast Sodium 10 mg 05/05/20 09:00 05/05/20 08:48 Montelukast Sodium 10 Mg Tablet PO 10 mg DAILY JULIAN Administration Morphine Sulfate 2 mg 05/04/20 17:02 Morphine Sulfate (*Crx) 2 Mg/Ml Inj IV PUSH Q2H PRN Pain Rated 4-6 Morphine Sulfate 4 mg
[2020-05-06] MEDS: IBUPROFEN 400 MG TABLET 800 MG PO (06:39)
[2020-05-06 07:45] LABS: Glucose Point of Care 121 (65-105)
[2020-05-06] MEDS: FINASTERIDE 5 MG TABLET PO (09:46)
[2020-05-06] MEDS: lisinopriL 10 MG TABLET 30 MG PO (09:46)
[2020-05-06] MEDS: ENOXAPARIN 40 MG/0.4 ML SYRINGE SUB-Q (09:46)
[2020-05-06] MEDS: ROSUVASTATIN 5 MG TABLET PO (09:47)
[2020-05-06] MEDS: metFORMIN HCL XR 500 MG TAB.SR.24H 1000 MG PO (09:47)
[2020-05-06] MEDS: MONTELUKAST SODIUM 10 MG TABLET PO (09:47)
[2020-05-06] MEDS: TAMSULOSIN HCL 0.4 MG CAPSULE PO (09:47)
--- NOTE | 2020-05-06 10:16 | PM.DS ---
DS: Admitting Diagnosis Admitting Diagnosis Admitting Diagnosis: mesh infection,umbilical hernia, hx left ing repai DS: Discharge Diagnosis Discharge Diagnosis (1) Infected hernioplasty mesh: Qualifiers: Encounter type: initial encounter Qualified Code(s): T85.79XA - Infection and inflammatory reaction due to other internal prosthetic devices, implants and grafts, initial encounter Code(s): T85.79XA - Infection and inflammatory reaction due to other internal prosthetic devices, implants and grafts, initial encounter Status: Acute (2) Chronic UTI: Code(s): N39.0 - Urinary tract infection, site not specified Status: Acute (3) Recurrent left inguinal hernia: Code(s): K40.91 - Unilateral inguinal hernia, without obstruction or gangrene, recurrent Status: Acute (4) Right inguinal hernia: Code(s): K40.90 - Unilateral inguinal hernia, without obstruction or gangrene, not specified as recurrent Status: Acute (5) Right hydrocele: Code(s): N43.3 - Hydrocele, unspecified Status: Acute (6) Body mass index (bmi) 32.0-32.9, adult: Code(s): Z68.32 - Body mass index [BMI] 32.0-32.9, adult Status: Acute DS: Summary Hospital Course Reason for hospitalization: Hernioplasty mesh infection and erosion into bladder, recurrent left inguinal hernia, right inguinal hernia, umbilical hernia, right hydrocele Hospital Course: This is a 64-year-old man who presented for surgical removal of infected hernioplasty mesh that was eroding into his bladder. He has a history of laparoscopic left inguinal hernia repair with mesh in 1998. He had been experiencing hematuria and recurrent UTIs over the past year and was ultimately found to have mesh eroding into the bladder. He was taken to surgery on 05/04/2020. He underwent a complex robotic procedure to remove the mesh and repair the bladder. He also had a recurrent left inguinal hernia repaired and right inguinal hernia repaired robotically. Umbilical hernia repair was also performed and right hydrocelectomy. Due to the length and complexity of the procedure he was admitted to the hospital postoperatively. In indwelling Coronel catheter was kept in place due to the bladder repair and a KJ drain was placed near the location of the bladder repair. On postop day 1 his KJ drain was appearing to be minimal serosanguineous output and Coronel catheter was draining well. He was still having a significant amount of lower abdominal and pelvic pain. He was having difficulty getting up out of bed without a significant amount of assistance. His pain meds were adjusted to hopefully improve his pain control. On postop day 2 he was feeling much better. Coronel was still draining and appeared to be clear yellow urine. KJ was minimal serosanguineous output. Pain was much better controlled. His KJ drain was removed on postop day 2 and he was discharged home. Status at Discharge Functional status at discharge: independent ambulation Overall status at discharge: patient is progressing back to baseline Time Spent with Patient Time attestation: Total time spent providing and/or coordinating discharge services: Time spent: Less than 30 minutes Exam Const: General: comfortable and no acute distress Orientation/consciousness: patient oriented x3 Resp: Effort & Inspection: normal respiratory effort Cardio: Rate: regular rate Rhythm: regular rhythm GI: Inspection: incision (C/D/I) and other (KJ serosanguinous) GI Palp: Yes Tenderness to palpation present (GI) (incisional) : Scrotum: scrotal swelling diffuse Urinary Catheter: Urinary Catheter: patent and draining and urine clear DS: Data Data Completed and Pending Pending studies at discharge: Pending at discharge 05/04/20 14:02 Surgical [PTH] Routine Surgical [PTH] Routine Labs on day of discharge: Labs from last 24 hours 05/06/20 05/05/20 05/05/20 06:40 21:59 13:06 POC C
[2020-05-06] MEDS: HYDROcodone/acetaminophen (*CRX) 5-325 MG TABLET 1 TAB PO (11:03)
[2020-05-06 11:46] LABS: Glucose Point of Care 142 (65-105)
== END 2020-05-06 13:50 | disposition home or self-care (01) ==
LOC: ANHSURGERY 15:19 → ANH2MED 15:19
PROVIDERS: Urology; Admitting Provider Surgery; PCP Internal Medicine; Visit Provider Surgery
PROC: 8E0Y4CZ Robotic Assisted Procedure of Lower Extremity, Percutaneous Endoscopic Approach (ICD-10-PCS; CPT 49650; principal; 2020-05-04 08:30)
PROC: (CPT 49650; 2020-05-04 08:30)
PROC: (CPT 55040; 2020-05-04 08:30)
DX: K42.9 Umbilical hernia without obstruction or gangrene (principal); K40.91 Unilateral inguinal hernia, without obstruction or gangrene, recurrent; T85.79XA Infection and inflammatory reaction due to other internal prosthetic devices, implants and grafts, initial encounter; D17.6 Benign lipomatous neoplasm of spermatic cord; N43.3 Hydrocele, unspecified; N40.0 Benign prostatic hyperplasia without lower urinary tract symptoms; J45.909 Unspecified asthma, uncomplicated; E11.9 Type 2 diabetes mellitus without complications; I10 Essential (primary) hypertension; E78.00 Pure hypercholesterolemia, unspecified; E66.9 Obesity, unspecified; Z68.32 Body mass index [BMI] 32.0-32.9, adult; Z87.891 Personal history of nicotine dependence
CPT/HCPCS: 49650; 49651; 54640; 55040; 49585; 51999; S2900; 36415; 80048; 82570; 85027; 88300; 88302; 94640; A9270; G0378; J0690; J1100; J1170; J1650; J1885; J2250; J2405; J2704; J2710; J3010; J7030; J7120; Q9968

== ENCOUNTER 2020-05-13 12:34 | Outpatient (CLI) | payer OTHER, SELFPAY ==
--- NOTE | ~2020-05-13 | XR_ITS ---
EXAMINATION: XR cystogram EXAM DATE: 05/13/2020 13:04 INDICATION: Lesion of bladder. TECHNIQUE: Cystogram performed through Coronel catheter in place on patient arrival with saline Omnipa que 350 solution. Dose reduction digital pulsed fluoroscopy was used at 4 frames per second with DAP 10 Gycm2. No prior study for comparison. FINDINGS: Patient tolerated approximately 300 mL of contrast distention. The bladder has normal appea katie without trabeculation, extravasation or ureteral reflux. IMPRESSION: Normal cystogram Reviewed, dictated and finalized at location A. RESS MACHINE OPERATOR IMPRESSION: Normal cystogram
== END 2020-05-13 12:35 | disposition home or self-care (01) ==
LOC: ANHIMG 12:37
PROVIDERS: PCP Internal Medicine; Visit Provider Urology
DX: N32.9 Bladder disorder, unspecified (principal)
CPT/HCPCS: 51600; 74430; Q9967

== ENCOUNTER 2020-05-19 15:47 | Inpatient (IN) | payer OTHER, SELFPAY ==
[2020-05-19] VITALS (31 sets, daily range): BP systolic 129–165; BP diastolic 65–91; PULSE 78–114; RESP 12–20; TEMP 36.3–38.3; O2SAT 97–99; BMI 32.3
--- NOTE | ~2020-05-19 | CT_ITS ---
EXAMINATION: CT abdomen pelvis w con DATE: 05/19/2020 17:25 INDICATION: Fever post recent surgery TECHNIQUE: Computed tomography (CT) of the abdomen and pelvis was performed with 100 mL Omnipaque-350 intravenous contrast. Automated exposure control and iterative reconstruction technique were employe d. The dose-length product was 1089.01 mGy-cm. COMPARISON: None FINDINGS: Mild atelectasis/scarring in the lingula and right middle lobe. Heart size is normal. No pericardial or pleural effusion. Very small sliding-type hiatal hernia. Several well-defined fluid attenuation cy sts in the liver the largest measuring 5.8 cm. Cholecystectomy clips in the bladder fossa. Spleen, pa ncreas, bilateral adrenal glands and kidneys are normal. Normal appendix. No bowel obstruction. Marke d colonic diverticulosis with descending and sigmoid colon predominance. There is wall thickening and inflammatory stranding surrounding the proximal sigmoid colon consistent with diverticulitis. There is a small focus of likely extraluminal gas along the posterior margin of the proximal sigmoid colon suggesting microperforation. There is a 20.6 x 9.9 x 2.9 cm intraperitoneal fluid collection in the a nterior pelvis. There is some enhancement along the anterior margin of the fluid collection the major ity of the fluid collections without organized-appearing wall to suggest abscess. No evident higher a ttenuation within the fluid to suggest hematoma/hemoperitoneum. There is wall thickening at the anter ior bladder which may be reactive related to the adjacent diverticulitis. Small focus of gas amongst the subcutaneous stranding in the periumbilical region likely sequela of reported recent surgery. Sma ll right inguinal hernia containing fat as well as an additional fluid collection measuring 2 cm in m aximal diameter. No pathologically enlarged abdominal or pelvic lymphadenopathy. Moderate degenerativ e skeletal changes in the lower lumbar spine and bilateral hips. IMPRESSION: 1. Sigmoid diverticulitis with likely microperforation with medialization small amount of extralumina l gas. 2. 21 x 10 x 3 cm intraperitoneal fluid collection in the anterior pelvis without well-defined organi zed wall to suggest abscess. Differential would include reactive ascites, peritonitis or residual pos toperative free fluid. Reviewed, dictated and finalized at location H. ER MACHINE OPERATOR IMPRESSION: 1. Sigmoid diverticulitis with likely microperforation with medialization small amount of extraluminal gas. 2. 21 x 10 x 3 cm intraperitoneal fluid collection in the anterior pelvis witho ut well-defined organized wall to suggest abscess. Differential would include r eactive ascites, peritonitis or residual postoperative free fluid.
--- NOTE | 2020-05-19 15:53 | ED.FEVER ---
HPI - Fever General Chief Complaint: Abdominal Pain Stated Complaint: Fever - abd surg 05/04/20 Time Seen by Provider: 05/19/20 15:52 Source: patient and family Mode of arrival: ambulatory Limitations: no limitations History of Present Illness HPI Narrative: Patient is a 64 yo male who presents to the ER for evaluation of fever. Patient with recent intraabdominal surgery 05/04 due to inguinal hernia mesh eroding into patient bladder, and pt with recurrent UTIs, who has revision of this with Dr. Salcido and Dr. Concepcion. Pt with check up on 05/14 which was normal. Patient developed 103F yesterday. Report very mild right sided abdominal discomfort. Denies nausea or vomiting. No chest pain, cough, congestion, sore throat or myalgies. Pt states fever has not been responding much to Tylenol. Last dose of acetaminophen was 2 hours prior to arrival. Patient denies dysuria or hematuria. Patient states incision sites are clean and dry, no discharge from the sites, no redness surrounding the sites. Patient has mostly been isolating at home, denies any sick exposures. Related Data Home Medications Medication Instructions Recorded Confirmed Breo Ellipta 1 inh INHALATION HS 01/08/20 05/14/20 Co Q-10 200 mg PO DAILY 01/08/20 05/14/20 Primo Round 1 cap PO DAILY 01/08/20 05/14/20 finasteride 5 mg PO DAILY 01/08/20 05/14/20 lisinopril 30 mg PO DAILY 01/08/20 05/14/20 metformin 1,000 mg PO DAILY 01/08/20 05/14/20 montelukast 10 mg PO DAILY 01/08/20 05/14/20 rosuvastatin 5 mg PO DAILY 01/08/20 05/14/20 tamsulosin 0.4 mg PO DAILY 01/08/20 05/14/20 Allergies Allergy/AdvReac Type Severity Reaction Status Date / Time Penicillins Allergy Unknown Unknown Verified 05/14/20 10:24 sulfamethoxazole Allergy skin Verified 05/14/20 10:24 [From Bactrim] reaction, burning trimethoprim [From Bactrim] Allergy skin Verified 05/14/20 10:24 reaction, burning Review of Systems Review of Systems: Narrative: CONSTITUTIONAL: Reports fever and chills ENT: Denies rhinorrhea, congestion, sore throat, or otalgia. CARDIOVASCULAR: Denies chest pain, palpitations, or edema. RESPIRATORY: Denies cough or dyspnea. GASTROINTESTINAL: Reports mild right-sided abdominal pain, denies nausea or vomiting GENITOURINARY: Denies dysuria or hematuria. SKIN: Denies rash or itching. MUSCULOSKELETAL: Denies back pain, joint pain, or myalgia. NEUROLOGIC: Denies headache, numbness, or weakness. [facility] Past Medical History Medical History Asthma BPH (benign prostatic hyperplasia) Diabetes HTN (hypertension) Hypercholesterolemia Obesity Surgical History Surgical History History of cholecystectomy History of hernia repair History of inguinal hernia repair 05/04/20 Robotic assisted lap removal infected mesh, LIH repair with biologic mesh Hx of spinal surgery Lumbar Surgery L4-5 Family History Family History Father Leukemia Mother Cerebrovascular accident Social History Social History Smoking packs per day: 0.5 Smoking cigarettes per day: 10.0 Years smoked: 20 Smoking pack-years: 10.00 Smoking status: Former smoker Tobacco type: cigarettes Additional smoking assessment comments: quit 1996 Alcohol intake: current Drinks per week: 6 Substance use: never Substance use type: does not use Additional occupation/education comments: [employer] Gender identity (if verbalized by the patient): Male Spiritual care concerns: No Exam Narrative: Exam Narrative: GENERAL: Awake, alert, conversant HEAD: Normocephalic, atraumatic. EYES: PERRLA and EOMI. ENT: Nares clear, no rhinorrhea or epistaxis. Mucous membranes moist. NECK: Supple. CHEST: No respiratory distress, breathing even and
[2020-05-19 16:05] LABS: Hematocrit 38.6 % (42.0-52.0); Mean Corpuscular HGB Conc 33.7 g/dl (32-36); Mean Corpuscular Hemoglobin 31.1 pg (26-34); Mean Corpuscular Volume 92.3 fl (80-100); Mean Platelet Volume 9.4 fl (7.4-10.4); Platelet Count Result 436 k/mm3 (150-375); Red Blood Count 4.18 M/mm3 (4.6-6.20); Red Cell Distribution Width 12.2 % (11.5-14.5); White Blood Count 20.7 K/mm3 (4.5-10.0)
[2020-05-19] MEDS: SODIUM CHLORIDE 0.9% IV 2,000 ML 999 ML IV CONT (16:05)
[2020-05-19 16:18] LABS: Lactic Acid Reflex 2.1 mmol/L (0.7-2.1)
[2020-05-19 16:19] LABS: INR 1.1; Prothrombin Time 14.8 Seconds (11.1-14.7)
[2020-05-19 16:20] LABS: Alanine Aminotransferase 21 U/L (4-50); Albumin Level 4.1 g/dL (3.5-5.1); Alkaline Phosphatase 68 U/L (38-126); Anion Gap 11 mmol/L (8-16); Aspartate Amino Transferase 18 U/L (17-59); Bilirubin,Total 0.4 mg/dL (0.2-1.3); Blood Urea Nitrogen 16 mg/dL (9-20); Calcium 9.2 mg/dL (8.4-10.2); Carbon Dioxide 24 mmol/L (22-30); Chloride 102 mmol/L (98-107); Estimated CRCL calculation 72 ml/min; Estimated Glomerular Filt Rate > 60; Glucose 158 mg/dL (75-110); Partial Thromboplastin Time 30.9 SECONDS (22.3-36.8); Sodium 137 mmol/L (137-145)
[2020-05-19 16:27] LABS: Potassium 4.1 mmol/L (3.4-5.0)
[2020-05-19 16:29] LABS: Band Neutrophils Percent 5 % (0-6); Eosinophils Percent Manual 1 % (0-4); Lymphocytes Absolute Manual 1.24 K/mm3 (1.1-4.5); Monocytes Absolute Manual 1.65 K/mm3 (0.1-0.90); Monocytes Percent Manual 8 % (3-9); Neutrophils Absolute Manual 17.59 K/mm3 (1.3-6.7); Neutrophils Percent Manual 80 % (46-73); Platelet Estimate Increased (Adequate); Total Cells Counted 100
[2020-05-19] MEDS: metroNIDAZOLE 500 MG/ISO 100ML 500 MG/100 ML BAG 100 MG IVPB (16:37)
[2020-05-19 16:41] LABS: Add Urine Microscopic? YES; Appearance Urine Clear (Clear); Bilirubin Urine Negative (Negative); Blood Urine 1+ (Negative); Color Urine Yellow (Yellow); Glucose Urine UA Negative (Negative); Ketones Urine Trace mg/dL (Negative); Leukocyte Esterase Ur Negative LEU/UL (Negative); Mucus Urine Few /lpf; Nitrate Urine Negative (Negative); Protein Urine 2+ mg/dL (Negative); WBC Urine 0-3 /hpf
[2020-05-19 16:42] LABS: Specific Grav Ur 1.036 (1.001-1.035)
--- NOTE | 2020-05-19 18:28 | PM.IMHP ---
H&P: HPI History of Present Illness Date/Time: 05/19/20 18:28 Chief complaint: Fever - abd surg 05/04/20 Narrative: Jim Browne is a 64 year old male presenting with fevers, moderate abdominal pain over last few days. Pt reports pain is mild and crampy in nature. Pt reports pain is mostly in LLQ. Pt reports some looser stools over the same period. Pt reports fevers up to 103. Pt reports similar to previous diverticulitis episodes. Of note, pt had robotic repair of recurrent inguinal hernia and noted mesh eroding into bladder on 05/04. Review of Systems Constitutional: Constitutional: Denies anorexia, Reports body ache(s), Reports chills, Reports fatigue, Reports fever(s), Denies increased appetite, Reports lethargy, Reports malaise, Denies night sweats, Reports poor appetite, Reports weakness, Denies weight gain and Denies weight loss Eyes: Eyes: Reports no additional eye complaints ENT: Reports system reviewed and no additional complaints, except as documented Cardiovascular: Cardiovascular: Reports no additional cardiovascular complaints Respiratory: Respiratory: Reports no additional respiratory complaints Gastrointestinal: Gastrointestinal: Reports abdominal pain, Reports change in bowel habits, Denies constipation, Reports GI cramping, Denies fecal incontinence, Reports diarrhea, Denies nausea and Denies vomiting Genitourinary: Genitourinary: Reports no additional male genitourinary complaints Musculoskeletal: Musculoskeletal: Reports no additional musculoskeletal complaints Integumentary/Breasts: Skin/Breast: Reports system reviewed and no additional complaints, except as docu Neurologic: Reports system reviewed and no additional complaints, except as documented Psychiatric: Psychiatric: Reports no additional psychiatric complaints Endocrine: Endocrine: Reports no additional endocrine complaints Hematologic/Lymphatic: Hematologic/Lymphatic: Reports no additional hematologic/lymphatic complaints Allergic/Immunologic: Allergic/Immunologic: Reports no additional allergic/immunologic complaints PMFSH Past Medical History Medical History Asthma BPH (benign prostatic hyperplasia) Diabetes HTN (hypertension) Hypercholesterolemia Obesity Surgical History Surgical History History of cholecystectomy History of hernia repair History of inguinal hernia repair 05/04/20 Robotic assisted lap removal infected mesh, LIH repair with biologic mesh Hx of spinal surgery Lumbar Surgery L4-5 Family History Family History Father Leukemia Mother Cerebrovascular accident Social History Social History Smoking packs per day: 0.5 Smoking cigarettes per day: 10.0 Years smoked: 20 Smoking pack-years: 10.00 Smoking status: Former smoker Tobacco type: cigarettes Additional smoking assessment comments: 1996 Alcohol intake: current Drinks per week: 6 Substance use: never Substance use type: does not use Additional occupation/education comments: [employer] Gender identity (if verbalized by the patient): Male Spiritual care concerns: No Meds Home Medications and Allergies Home Medications Medication Instructions Recorded Confirmed Type Breo Ellipta 1 inh INHALATION HS 01/08/20 05/14/20 History Co Q-10 200 mg PO DAILY 01/08/20 05/14/20 History [facility] 1 cap PO DAILY 01/08/20 05/14/20 History finasteride 5 mg PO DAILY 01/08/20 05/14/20 History lisinopril 30 mg PO DAILY 01/08/20 05/14/20 History metformin 1,000 mg PO DAILY 01/08/20 05/14/20 History montelukast 10 mg PO DAILY 01/08/20 05/14/20 History rosuvastatin 5 mg PO DAILY 01/08/20 05/14/20 History tamsulosin 0.4 mg PO DAILY 01/08/20 05/14/20 History Allergies Allergy/AdvR
--- NOTE | 2020-05-19 19:00 | ADMGEN ---
This patient, Jim Browne, was admitted to Medical Room 348-01. Patient/family oriented to hospital policies and general routines including ID bracelet, bed and alarms, visiting hours, pain management, procedures, bathroom and other care routines, personal items, smoking policy, room service/diet, and visiting hours. Information on how to activate the Rapid Response Team has been discussed. Patient/Family are encouraged to report perceived risks to care and to ask questions if they do not understand what they are told or what they should do.
[2020-05-19 19:03] LABS: Reflex Lactic Acid Yes or No Add Lactic
[2020-05-19 19:43] LABS: Lactic Acid 1.2 mmol/L (0.7-2.1)
[2020-05-19] MEDS: SODIUM CHLORIDE 0.9% IV 1,000 ML 125 ML IV CONT (21:31)
[2020-05-19 22:17] LABS: Glucose Point of Care 124 (65-105)
[2020-05-20] MEDS: metroNIDAZOLE 500 MG/ISO 100ML 500 MG/100 ML BAG 100 MG IVPB ×5 (01:16→23:10)
[2020-05-20 06:00] VITALS: BP 156/86; PULSE 72; RESP 16; TEMP 37.3; O2SAT 99
[2020-05-20 06:08] LABS: Basophils Absolute Auto 0.1 K/mm3 (0.0-0.1); Basophils Percent Auto 0.4 % (0.2-1.2); Eosinophils Absolute Auto 0.4 K/mm3 (0-0.3); Eosinophils Percent Auto 2.6 % (0-4.4); Hematocrit 31.5 % (42.0-52.0); Hemoglobin 10.3 g/dL (14.0-18.0); Immature Granulocyte Absolute 0.13 K/mm3 (0.00-0.031); Immature Granulocyte Percent A 0.9 % (0-0.5); Lymphocytes Absolute Auto 1.17 K/mm3 (0.9-3.2); Lymphocytes Percent Auto 8.4 % (18.3-44.2); Mean Corpuscular HGB Conc 32.7 g/dl (32-36); Mean Corpuscular Hemoglobin 30.6 pg (26-34); Mean Corpuscular Volume 93.5 fl (80-100); Mean Platelet Volume 9.5 fl (7.4-10.4); Monocytes Absolute Auto 1.2 K/mm3 (0.1-0.6); Monocytes Percent Auto 8.6 % (2.6-8.5); Neutrophils Absolute Auto 11.1 K/mm3 (1.3-6.7); Neutrophils Percent Auto 79.1 % (45.5-73.1); Platelet Count Result 372 k/mm3 (150-375); Red Blood Count 3.37 M/mm3 (4.6-6.20); Red Cell Distribution Width 12.1 % (11.5-14.5)
[2020-05-20 06:30] LABS: Alanine Aminotransferase 15 U/L (4-50); Alkaline Phosphatase 69 U/L (38-126); Anion Gap 4 mmol/L (8-16); Aspartate Amino Transferase 20 U/L (17-59); Bilirubin,Total 0.3 mg/dL (0.2-1.3); Blood Urea Nitrogen 13 mg/dL (9-20); Carbon Dioxide 28 mmol/L (22-30); Chloride 105 mmol/L (98-107); Estimated CRCL calculation 90 ml/min; Estimated Glomerular Filt Rate > 60; Glucose 115 mg/dL (75-110); Potassium 3.9 mmol/L (3.4-5.0); Sodium 137 mmol/L (137-145)
[2020-05-20] MEDS: SODIUM CHLORIDE 0.9% IV 1,000 ML 125 ML IV CONT ×3 (06:31→23:52)
--- NOTE | 2020-05-20 10:07 | PM.PNGS ---
Progress Note: A&P Assessment and Plan (1) Diverticulitis: Code(s): K57.92 - Diverticulitis of intestine, part unspecified, without perforation or abscess without bleeding Status: Acute Assessment and Plan: cont abx, clears, encourage OOB Subjective Subjective Date/Time Seen: 05/20/20 10:07 feels better today, decreased pain Review of Systems Constitutional: Constitutional: Denies anorexia, Denies body ache(s), Denies chills, Reports fatigue, Reports lethargy, Reports malaise and Reports weakness Cardiovascular: Cardiovascular: Reports no additional cardiovascular complaints Respiratory: Respiratory: Reports no additional respiratory complaints Gastrointestinal: Gastrointestinal: Reports abdominal pain, Denies nausea and Denies vomiting Exam Const: General: cooperative, comfortable and no acute distress Resp: Effort & Inspection: normal respiratory effort Auscultation: clear to auscultation bilaterally Cardio: Rate: regular rate Rhythm: regular rhythm GI: Inspection: normal to inspection and distended GI Palp: Yes Soft to palpation, Yes Tenderness to palpation present (GI), No Guarding due to palpation present (GI) and No Rigid due to palpation Other: soft, sl dist, decreased TTP LLQ Objective Data Vital Signs Vital Signs: Vital Signs - 24 hr 05/19/20 15:55 05/19/20 16:00 05/19/20 16:01 Temperature 37.8 C H Pulse Rate 114 H 110 H 111 H Respiratory Rate 15 20 17 Blood Pressure 165/84 H 158/91 H Pulse Oximetry 99 99 05/19/20 16:15 05/19/20 16:16 05/19/20 16:30 Temperature Pulse Rate 97 96 94 Respiratory Rate 14 14 13 Blood Pressure 147/75 H Pulse Oximetry 98 05/19/20 16:31 05/19/20 16:46 05/19/20 16:47 Temperature Pulse Rate 98 92 90 Respiratory Rate 12 15 16 Blood Pressure 136/73 130/67 Pulse Oximetry 98 98 05/19/20 17:00 05/19/20 17:01 05/19/20 17:27 Temperature Pulse Rate 87 87 92 Respiratory Rate 16 17 18 Blood Pressure 129/71 Pulse Oximetry 98 05/19/20 17:28 05/19/20 17:30 05/19/20 17:31 Temperature Pulse Rate 90 86 88 Respiratory Rate 15 18 17 Blood Pressure 142/73 H 130/65 Pulse Oximetry 97 99 05/19/20 17:45 05/19/20 17:46 05/19/20 18:00 Temperature Pulse Rate 84 84 80 Respiratory Rate 13 14 14 Blood Pressure 135/67 Pulse Oximetry 05/19/20 18:01 05/19/20 18:15 05/19/20 18:16 Temperature Pulse Rate 83 82 83 Respiratory Rate 13 16 13 Blood Pressure 133/71 140/72 Pulse Oximetry 98 98 05/19/20 18:17 05/19/20 18:30 05/19/20 18:31 Temperature Pulse Rate 80 82 82 Respiratory Rate 17 14 16 Blood Pressure 156/79 H 148/73 H Pulse Oximetry 99 98 05/19/20 18:32 05/19/20 18:45 05/19/20 18:46 Temperature Pulse Rate 78 78 80 Respiratory Rate 15 17 18 Blood Pressure 135/83 Pulse Oximetry 98 05/19/20 19:07 05/19/20 20:25 05/19/20 21:31 Temperature 36.3 C L 38.3 C H 38.3 C H Pulse Rate 83 83 Respiratory Rate 18 18 Blood Pressure 154/72 H 147/79 H Pulse Oximetry 99 97 05/19/20 22:01 05/20/20 06:00 Temperature 37.2 C 37.3 C Pulse Rate 72 Respiratory Rate 16 Blood Pressure 156/86 H Pulse Oximetry 99 Intake/Output Intake/Output: Intake & Output 05/17/20 05/18/20 05/19/20 05/20/20 23:59 23:59 23:59 23:59 Intake Total 2850 2200 Output Total 1200 Balance 2850 1000 Meds/Results Medications: Active Medications Generic Name Dose Route Start Last Admin Trade Name Freq PRN Reason Stop Dose Admin Levofloxacin/Dextrose 750 mg in 150 mls @ 100 mls/hr 05/20/20 21:00 Levaquin 750 Mg/D5w 150 Ml IVPB Q24H JULIAN Metronidazole 500 mg in 100 mls @ 100 mls/hr 05/20/20 00:00 05/20/20 07:30 Flagyl 500 Mg/Iso Soln 100 Ml IVPB Infused Q6HR JULIAN Infusion Acetaminophen 1,000 mg in 100 mls @ 400 mls/hr 05/19/20 17:57 05/19/20 21:46 Ofirmev 1,000 Mg Ivpb IVPB 05/20/20 17:58 Infused Q6H PRN Infusion Mild Pain (1-3) or Fever S
[2020-05-20 14:23] VITALS: BP 145/61; PULSE 72; RESP 16; TEMP 37.8; O2SAT 100
[2020-05-20 14:24] VITALS: TEMP 37.8
[2020-05-20 22:00] VITALS: BP 140/69; PULSE 65; RESP 16; TEMP 36.9; O2SAT 99
[2020-05-21 05:19] VITALS: BP 147/75; PULSE 65; RESP 16; TEMP 36.2; O2SAT 98
[2020-05-21] MEDS: metroNIDAZOLE 500 MG/ISO 100ML 500 MG/100 ML BAG 100 MG IVPB ×3 (05:20→17:26)
[2020-05-21 10:14] LABS: Vancomycin Trough 8.5 ug/mL (10.0-20.0)
--- NOTE | 2020-05-21 10:22 | PM.PNGS ---
Progress Note: A&P Assessment and Plan (1) Diverticulitis: Code(s): K57.92 - Diverticulitis of intestine, part unspecified, without perforation or abscess without bleeding Status: Acute Assessment and Plan: Continues to improve. Pain on admission is essentially gone but he still has tenderness in the left lower quadrant. Will advance to full liquids and DC vancomycin. Continue IV Levaquin and metronidazole. Doing well. (2) Diabetes: Qualifiers: Diabetes mellitus type: type 2 Diabetes mellitus terminal makeup operator insulin use: without alf use Diabetes mellitus complication status: without complication Qualified Code(s): E11.9 - Type 2 diabetes mellitus without complications Code(s): E11.9 - Type 2 diabetes mellitus without complications Status: Chronic Assessment and Plan: Resume home meds and start to monitor sugars. Sliding scale insulin. Accu-Cheks. Subjective Subjective Date/Time Seen: 05/21/20 10:22 Patient reports: feels better, pain is less, voiding w/o difficulty and afebrile Interval history: patient had 1 other episode of acute diverticulitis which was able to be treated as an outpatient. This is his 2nd episode. Review of Systems Review of Systems: All systems reviewed & are unremarkable except as noted in HPI and below Constitutional: Constitutional: Denies chills, Denies fever(s), Denies headache(s), Reports increased appetite and Denies poor appetite Cardiovascular: Cardiovascular: Denies chest pain and Denies dyspnea Respiratory: Respiratory: Denies cough and Denies dyspnea Gastrointestinal: Gastrointestinal: Reports as per HPI Neurologic: Denies confusion and Denies headache(s) Exam Const: General: comfortable and no acute distress; No confusion Orientation/consciousness: patient oriented x3 and No confusion GI: Inspection: non-distended and incision ( Healing well) GI Palp: Yes Soft to palpation, Yes Tenderness to palpation present (GI) ( mild left lower quadrant tenderness), No Guarding due to palpation present (GI) and No Rebound tenderness present Auscultation: normal bowel sounds Neuro: General: patient oriented x3, no focal motor deficits and No confusion Extrem: General: no calf tenderness and no edema Psych: Affect: normal affect Insight: Good insight present (Psych) Judgement: Good judgement present (Psych) Objective Data Vital Signs Vital Signs: Vital Signs - 24 hr 05/20/20 14:23 05/20/20 14:24 05/20/20 22:00 Temperature 37.8 C H 37.8 C H 36.9 C Pulse Rate 72 65 Respiratory Rate 16 16 Blood Pressure 145/61 H 140/69 Pulse Oximetry 100 99 05/21/20 05:19 Temperature 36.2 C L Pulse Rate 65 Respiratory Rate 16 Blood Pressure 147/75 H Pulse Oximetry 98 Intake/Output Intake/Output: Intake & Output 05/18/20 05/19/20 05/20/20 05/21/20 23:59 23:59 23:59 23:59 Intake Total 2850 5030 225 Output Total 4400 1050 Balance 2850 525 -174 Meds/Results Medications: Active Medications Generic Name Dose Route Start Last Admin Trade Name Freq PRN Reason Stop Dose Admin Acetaminophen 500 mg 05/21/20 10:18 Acetaminophen 500 Mg Tablet PO Q6H PRN Mild Pain (1-3) or Fever Hydrocodone Bitart/Acetaminophen 1 tab 05/21/20 10:18 Hydrocodone/Acetaminophen (*Crx) 5-325 Mg Tablet PO Q4H PRN Pain Rated 4-6 Budesonide/Formoterol Fumarate 2 puff 05/21/20 20:00 Budesonide/Form 160-4.5 Mcg (*Sp) INHALATION Q12HRT JULIAN Dextrose 12.5 gm 05/21/20 10:12 Dextrose 50% 25 Gm/50 Ml Syringe IV PUSH PRN PRN Hypoglycemia Protocol Finasteride 5 mg 05/21/20 10:20 Finasteride 5 Mg Tablet PO DAILY JULIAN Glucagon 1 mg 05/21/20 10:12 Glucagon For Inj 1 Mg Vial IM PRN PRN Hypoglycemia Protocol Glucose 15 gm 05/21/20 10:12 Glucose Oral Gel 15 Gm Of Glucse In 37.5 Gm Tube PO PRN PRN Hypoglycemia Protocol Levofloxacin/D
[2020-05-21] MEDS: metFORMIN HCL XR 500 MG TAB.SR.24H 1000 MG PO (10:42)
[2020-05-21] MEDS: lisinopriL 10 MG TABLET 30 MG PO (10:42)
[2020-05-21] MEDS: TAMSULOSIN HCL 0.4 MG CAPSULE PO (10:42)
[2020-05-21] MEDS: FINASTERIDE 5 MG TABLET PO (10:42)
[2020-05-21] MEDS: MONTELUKAST SODIUM 10 MG TABLET PO (10:42)
[2020-05-21 11:59] LABS: Glucose Point of Care 217 (65-105)
[2020-05-21 12:03] LABS: Glucose Point of Care 186 (65-105)
[2020-05-21 13:40] VITALS: BP 144/67; PULSE 69; RESP 16; TEMP 35.7; O2SAT 98
[2020-05-21 16:39] LABS: Glucose Point of Care 93 (65-105)
[2020-05-21 20:28] VITALS: BP 137/69; PULSE 57; RESP 18; TEMP 36.5; O2SAT 98
[2020-05-21 21:32] LABS: Glucose Point of Care 115 (65-105)
[2020-05-22] MEDS: metroNIDAZOLE 500 MG/ISO 100ML 500 MG/100 ML BAG 100 MG IVPB ×2 (00:46→05:42)
[2020-05-22 05:48] VITALS: BP 143/67; PULSE 54; RESP 16; TEMP 36.1; O2SAT 97
[2020-05-22 06:06] LABS: Hematocrit 33.1 % (42.0-52.0); Hemoglobin 10.9 g/dL (14.0-18.0); Mean Corpuscular HGB Conc 32.9 g/dl (32-36); Mean Corpuscular Hemoglobin 31.2 pg (26-34); Mean Corpuscular Volume 94.8 fl (80-100); Mean Platelet Volume 9.6 fl (7.4-10.4); Platelet Count Result 421 k/mm3 (150-375); Red Blood Count 3.49 M/mm3 (4.6-6.20); Red Cell Distribution Width 12.2 % (11.5-14.5); White Blood Count 8.2 K/mm3 (4.5-10.0)
[2020-05-22 06:07] LABS: Anion Gap 3 mmol/L (8-16); Blood Urea Nitrogen 9 mg/dL (9-20); Calcium 8.5 mg/dL (8.4-10.2); Carbon Dioxide 29 mmol/L (22-30); Chloride 108 mmol/L (98-107); Estimated CRCL calculation 90 ml/min; Estimated Glomerular Filt Rate > 60; Glucose 122 mg/dL (75-110); Potassium 3.7 mmol/L (3.4-5.0); Sodium 140 mmol/L (137-145)
[2020-05-22 07:43] LABS: Glucose Point of Care 135 (65-105)
[2020-05-22] MEDS: TAMSULOSIN HCL 0.4 MG CAPSULE PO (08:39)
[2020-05-22] MEDS: metFORMIN HCL XR 500 MG TAB.SR.24H 1000 MG PO (08:39)
[2020-05-22] MEDS: lisinopriL 10 MG TABLET 30 MG PO (08:39)
[2020-05-22] MEDS: MONTELUKAST SODIUM 10 MG TABLET PO (08:39)
[2020-05-22] MEDS: FINASTERIDE 5 MG TABLET PO (08:39)
--- NOTE | 2020-05-22 09:30 | PM.DS ---
DS: Admitting Diagnosis Admitting Diagnosis Admitting Diagnosis: Diverticulitis w microperforation/Post operative f DS: Discharge Diagnosis Discharge Diagnosis (1) Diverticulitis: Code(s): K57.92 - Diverticulitis of intestine, part unspecified, without perforation or abscess without bleeding Status: Acute (2) Post-operative state: Code(s): Z98.890 - Other specified postprocedural states Status: Acute Assessment and Plan: Patient had removal of previous left inguinal hernia mesh that had eroded into his urinary bladder on May 04, 2020. This was done robotically. He then had bilateral inguinal hernia repair with PhasixST mesh at the same procedure. (3) Diabetes: Qualifiers: Diabetes mellitus type: type 2 Diabetes mellitus terminologist insulin use: without terminologist use Diabetes mellitus complication status: without complication Qualified Code(s): E11.9 - Type 2 diabetes mellitus without complications Code(s): E11.9 - Type 2 diabetes mellitus without complications Status: Chronic DS: Summary Time Spent with Patient Time attestation: Total time spent providing and/or coordinating discharge services: Patient presented to the emergency room on May 19 with high fever to 103? and left lower quadrant abdominal pain. He is diabetic and underwent the above noted inguinal hernia repair on May 04, 2020. Due to the fact that the left inguinal hernia was recurrent, not all the PhasixST mesh was able to be covered by peritoneum. White count in the emergency room was 20,700. CT scan showed evidence of acute diverticulitis. An anterior pelvic fluid collection was also noted on the CT scan. This is likely a seroma associated with his bladder and inguinal hernia surgery. The patient was admitted and started on IV Levaquin, metronidazole, and vancomycin. He improved rather quickly. His white blood cell count returned to normal by 05/22/2020. He tolerated liquids and eventually a diabetic diet on the day of discharge. He was pain-free and nontender to abdominal exam. He is discharged on 05/22/2020 in improved condition. He will continue on oral antibiotics to complete 1 week of antibiotic therapy. Exam Const: General: comfortable and no acute distress; No confusion Orientation/consciousness: patient oriented x3 and No confusion GI: Inspection: non-distended, incision (All incisions healing well) and obesity GI Palp: Yes Soft to palpation, No Tenderness to palpation present (GI), No Guarding due to palpation present (GI) and No Rebound tenderness present Auscultation: normal bowel sounds Neuro: General: patient oriented x3, no focal motor deficits and No confusion Extrem: General: no calf tenderness and no edema Psych: Affect: normal affect Insight: Good insight present (Psych) Judgement: Good judgement present (Psych) DS: Data Data Completed and Pending Labs on day of discharge: Labs from last 24 hours 05/22/20 05/22/20 05/22/20 07:39 05:19 05:19 WBC 8.2 RBC 3.49 L Hgb 10.9 L Hct 33.1 L MCV 94.8 MCH 31.2 MCHC 32.9 RDW 12.2 Plt Count 421 H MPV 9.6 Sodium 140 Potassium 3.7 Chloride 108 H Carbon Dioxide 29 Anion Gap 3 L BUN 9 Creatinine 0.80 Estim Creat Clear Calc 90 Estimated GFR > 60 Glucose 122 H POC Capillary Glucose 135 H Calcium 8.5 Vancomycin Trough 05/21/20 05/21/20 05/21/20 20:26 16:29 12:00 WBC RBC Hgb Hct MCV MCH MCHC RDW Plt Count MPV Sodium Potassium Chloride Carbon Dioxide Anion Gap BUN Creatinine Estim Creat Clear Calc Estimated GFR Glucose POC Capillary Glucose 115 H 93 186 H Calcium Vancomycin Trough 05/21/20 05/21/20 11:19 08:54 WBC RBC Hgb Hct MCV MCH MCHC RDW Plt Count MPV Sodium Potassium Chloride Carbon Dioxide Anion Gap
== END 2020-05-22 12:00 | disposition home or self-care (01) | DRG 863 ==
LOC: ANHED 18:01 → ANH3MED 18:40
PROVIDERS: Admitting Provider Surgery; Emergency Provider Emergency Medicine; PCP Internal Medicine; Visit Provider Surgery
DX: T81.44XA Sepsis following a procedure, initial encounter (principal); K91.873 Postprocedural seroma of a digestive system organ or structure following other procedure; K57.92 Diverticulitis of intestine, part unspecified, without perforation or abscess without bleeding; I10 Essential (primary) hypertension; E11.9 Type 2 diabetes mellitus without complications
CPT/HCPCS: 36415; 74177; 80048; 80053; 80202; 81001; 83605; 85025; 85027; 85610; 85730; 87040; 94640; 96361; 96365; 96375; 99285; A9270; J0131; J1956; J3370; J7030; Q9967

== ENCOUNTER → 2020-06-22 09:36 | Outpatient (CLI) | payer OTHER, SELFPAY ==
--- NOTE | ~2020-06-22 | CT_ITS ---
EXAMINATION: CT abdomen pelvis wo con DATE: 06/22/2020 09:51 INDICATION: Follow-up left inguinal hernia repair TECHNIQUE: Computed tomography (CT) of the abdomen and pelvis was performed without intravenous contr ast. Automated exposure control and iterative reconstruction technique were employed. Exam dose: 869 .75 mGy-cm total exam DLP. COMPARISON: 05/19/2020 CT abdomen and pelvis FINDINGS: The lung bases are clear of infiltrate or consolidation. Normal heart size. No pericardial or pleural effusion. Very small sliding hiatal hernia. Multiple scattered hypoattenuating lesions of the liver, the largest measuring up to approximately 6 cm, likely hepatic cysts. These are stable since 05/19/2020. Status post cholecystectomy. No bile duct or pancreatic duct dilatation. No pancreatic mass lesion or calcification. Normal splenic size. Normal morphology of the adrenal glands. No renal mass lesion is evident on this limited noncontrast examination. No urinary tract calculus or hydroureteronephrosis. The urinary bladder is unremarkable other than some thickening of the urinary bladder wall, possibly secondary to cystitis or reactive change from an adjacent apparent encapsulat ed abscess in the lower bilateral anterior pelvis, measuring up to 6.6 cm AP and 16 cm transverse dim ension, with attenuation of approximately 10-15 Hounsfield units. This is likely a large abscess. There are multiple adjacent sigmoid colon diverticula, in addition to diverticula scattered throughou t the left and right colon. There is fat stranding adjacent to the sigmoid colon. Normal appendix. No bowel obstruction. Prostate enlargement and calcification. No suspicious osteolytic or osteoblastic lesion. Degenerative changes including diffuse idiopathic skeletal hyperostosis of the thoracic spine and deg enerative disease involving particularly L4-5 and L5-S1. IMPRESSION: Probable large encapsulated pelvic abscess secondary to sigmoid diverticulitis Dr. Mahajan telephoned the report to Dr. Kilpatrick's office voicemail on 06/22/2021 at 1225 hours Reviewed, dictated and finalized at [facility]. Reviewed, dictated and finalized at location A. RIZED SQUAD SERGEANT IMPRESSION: Probable large encapsulated pelvic abscess secondary to sigmoid di verticulitis Dr. Mahajan telephoned the report to Dr. Kilpatrick's office voicemail on 06/22/2021 at 1225 hours
== END ==
PROVIDERS: PCP Internal Medicine; Visit Provider Surgery
DX: K40.91 Unilateral inguinal hernia, without obstruction or gangrene, recurrent (principal)
CPT/HCPCS: 74176

== ENCOUNTER → 2020-08-09 08:05 | Outpatient (CLI) | payer OTHER, SELFPAY ==
--- NOTE | ~2020-08-09 | CT_ITS ---
EXAMINATION: CT pelvis wo con DATE: 08/09/2020 08:25 INDICATION: Diverticulitis of the intestine TECHNIQUE: Computed tomography (CT) of the pelvis was performed without intravenous contrast. The dos e-length product (DLP) was 500.18 mGy-cm. Automated exposure control and iterative reconstruction susan hnique were employed. COMPARISON: 06/22/2020 FINDINGS: There is a 13.8 x 2.5 cm abscess of the anterior pelvis which previously measured 16.1 x 6. 8 cm. The abscess courses into the pericolic gutter on the left and abuts the anterior bladder wall. There is colonic diverticulosis. Chronic wall thickening of the sigmoid colon likely relates to diver ticulosis. There are no dilated loops of bowel. No pathologically enlarged pelvic lymph nodes are marcelino ntified. The appendix is normal. There is severe lumbar spondylosis. IMPRESSION: 1. Large abscess of the anterior pelvis with slight decrease in size. Reviewed, dictated and finalized at location A. AVER BLOCK
== END ==
PROVIDERS: PCP Internal Medicine; Visit Provider Surgery
DX: K57.92 Diverticulitis of intestine, part unspecified, without perforation or abscess without bleeding (principal)
CPT/HCPCS: 72192

== ENCOUNTER → 2021-03-11 08:07 | Outpatient (CLI) | payer OTHER, SELFPAY ==
--- NOTE | ~2021-03-11 | CT_ITS ---
EXAMINATION: CT pelvis wo con DATE: 03/11/2021 08:39 INDICATION: Anterior pelvic abscess TECHNIQUE: High resolution computed tomography (CT) of the pelvis was performed without intravenous c ontrast. Additional sagittal and coronal reconstructions were performed. Automated exposure control a nd iterative reconstruction technique were employed. The dose-length product was 549.66 mGy-cm. COMPARISON: 08/09/2020 FINDINGS: There is a persistent thick-walled loculated fluid collection in the fat anterior to the bladder whic h is decreased in size from 13.6 x 3.0 x 2.0 cm to currently measuring 7.1 x 1.8 x 1.6 cm. The prior surrounding inflammatory stranding is also resolved. Normal appendix. Multiple diverticula along the visualized distal descending and proximal to mid sigmoid colon. No significant surrounding inflammato ry stranding to suggest acute diverticulitis. There is some wall thickening at the proximal sigmoid c olon which appears decreased since the prior study and which likely scarring related to prior diverti culitis. There is a surgical clip in the adjacent anterior left pelvis. Again seen is a small round r egion of central fat attenuation with partial rim calcification consistent with chronic fat necrosis. Mild prostatomegaly. Small fat-containing right inguinal hernia. No abscess or free intraperitoneal gas in the pelvis. No pathologically enlarged pelvic or inguinal lymphadenopathy. Moderate degenerati ve skeletal changes at the bilateral hips and lower lumbar spine. Ankylosis at the bilateral sacroili ac joints. IMPRESSION: 1. Decrease in size of a prior abscess extending across the anterior pelvis without measuring 7.1 x 1 .8 x 1.6 cm. There may be a small amount of residual fluid within the thick-walled cavity but no sign ificant surrounding inflammatory stranding to raise suspicion for residual/recurrent abscess. 2. Diverticulosis. 3. Small fat-containing right inguinal hernia. Reviewed, dictated and finalized at location A. IMPRESSION: 1. Decrease in size of a prior abscess extending across the anterior pelvis wit hout measuring 7.1 x 1.8 x 1.6 cm. There may be a small amount of residual flui d within the thick-walled cavity but no significant surrounding inflammatory st randing to raise suspicion for residual/recurrent abscess. 2. Diverticulosis. 3. Small fat-containing right inguinal hernia.
== END ==
PROVIDERS: PCP Internal Medicine; Visit Provider Internal Medicine
DX: K65.1 Peritoneal abscess (principal); K40.90 Unilateral inguinal hernia, without obstruction or gangrene, not specified as recurrent; K57.30 Diverticulosis of large intestine without perforation or abscess without bleeding
CPT/HCPCS: 72192

== ENCOUNTER 2022-03-16 16:12 | Outpatient (CLI) | payer MEDICARE, OTHER, SELFPAY ==
--- NOTE | ~2022-03-16 | CT_ITS ---
EXAMINATION: CT sinus wo con DATE: 03/16/2022 16:43 INDICATION: Chronic cough. Chronic sinusitis. TECHNIQUE: Computed tomography (CT) of the paranasal sinuses was performed without contrast. Iterativ e reconstruction technique was employed. Exam dose: 297.72 mGy-cm total exam DLP. COMPARISON: None FINDINGS: There is rightward bowing of the upper portion of the nasal septum and leftward bowing of t he lower portion. There is soft tissue swelling of the nasal turbinates, greatest at the left inferio r nasal turbinate. The ostiomeatal units are patent. There is mild nodular mucoperiosteal thickening in the lower portion of both maxillary sinuses and ri ght sphenoid sinus. The paranasal sinuses and mastoid air cells are otherwise normally developed and aerated. IMPRESSION: Mild mucosal periosteal thickening of the lower portion of the maxillary sinuses and rig ht sphenoid sinus Nasal septum rightward bowing superiorly and leftward bowing inferiorly Soft tissue swelling of the nasal turbinates Patent ostiomeatal units and mastoid air cells Reviewed, dictated and finalized at [facility]. Reviewed, dictated and finalized at [facility]. IMPRESSION: Mild mucosal periosteal thickening of the lower portion of the max illary sinuses and right sphenoid sinus Nasal septum rightward bowing superiorly and leftward bowing inferiorly Soft tissue swelling of the nasal turbinates Patent ostiomeatal units and mastoid air cells
--- NOTE | ~2022-03-16 | XR_ITS ---
XR chest 2V 03/16/2022 16:59 Indication: Chronic cough and sinusitis Procedure: 2 view chest Comparison: 05/06/2018 Findings: There are calcified granulomas in the right mid thorax. There is left basilar atelectasis. No focal pneumonia, pleural effusion or pneumothorax. No acute osseous abnormality. Impression: 1: No acute cardiopulmonary disease. Reviewed, dictated and finalized at [facility]. Impression: 1: No acute cardiopulmonary disease.
== END 2022-03-16 16:13 | disposition home or self-care (01) ==
LOC: CHSIMG 16:14
PROVIDERS: PCP Internal Medicine; Visit Provider Internal Medicine
DX: R05.3 Chronic cough (principal); J32.9 Chronic sinusitis, unspecified
CPT/HCPCS: 70486; 71046

== ENCOUNTER → 2022-11-29 09:05 | Outpatient (CLI) | payer MEDICARE, OTHER, SELFPAY ==
--- NOTE | ~2022-11-29 | CT_ITS ---
EXAMINATION: CT abdomen pelvis w con DATE: 11/29/2022 09:46 INDICATION: Anterior abdominal and pelvic abscess TECHNIQUE: Computed tomography (CT) of the abdomen and pelvis was performed with 100 CC Omnipaque 350 intravenous contrast. Automated exposure control and iterative reconstruction technique were employe d. Exam dose: 918.78 mGy-cm total exam DLP. COMPARISON: 03/11/2021 CT pelvis 06/22/2020 CT abdomen pelvis FINDINGS: The lung bases are clear. Multiple hepatic cysts are present, the largest measuring up to 8.2 cm. Status post cholecystectomy. No bile duct or pancreatic duct dilatation. No pancreatic mass lesion or calcification. Normal spleni c size. Normal morphology of the adrenal glands. No renal mass lesion or urinary tract calculus or hydroureteronephrosis. The urinary bladder is unrem arkable. There is interval resolution of the anterior pelvic abscess since 06/22/2020. Normal caliber of the abdominal aorta. No intraperitoneal or retroperitoneal or pelvic mass lesion or adenopathy or ascites. Normal appendix. There are numerous diverticula of left and right colon. No CT evidence of diverticulitis. No bowel ob struction or pneumatosis or intraperitoneal free air is detected. Prostate enlargement and calcification. Diffuse idiopathic skeletal hyperostosis of the lower thoracic spine. Moderately severe degenerative disc disease at L4-5 and L5-S1. No suspicious osteolytic or osteoblastic lesions are noted. IMPRESSION: Resolution of intrapelvic abscess since 03/11/2021 Diverticulosis of the left and right colon; no CT evidence of diverticulitis Multiple hepatic cysts Status post cholecystectomy Normal appendix Reviewed, dictated and finalized at [facility]. Reviewed, dictated and finalized at location []
[2022-11-29 09:23] LABS: Estimated Glomerular Filt Rate 55
== END ==
PROVIDERS: PCP Internal Medicine; Visit Provider Internal Medicine
DX: R19.09 Other intra-abdominal and pelvic swelling, mass and lump (principal); K57.30 Diverticulosis of large intestine without perforation or abscess without bleeding; K76.89 Other specified diseases of liver; Z90.49 Acquired absence of other specified parts of digestive tract
CPT/HCPCS: 74177; Q9967

== ENCOUNTER 2023-01-26 03:53 | Day surgery (SDC) | payer MEDICARE, OTHER, SELFPAY ==
[2023-01-16 14:30] VITALS: BMI 31.4
[2023-01-26 08:09] VITALS: BP 150/73; PULSE 64; RESP 17; TEMP 36.3; O2SAT 99; BMI 30.9
[2023-01-26 08:20] LABS: Glucose Point of Care 125 mg/dl (65-105)
[2023-01-26] MEDS: LACTATED RINGERS 1,000 ML 150 ML IV CONT (08:23)
--- NOTE | 2023-01-26 08:44 | PM.HPGS ---
History of Present Illness History of Present Illness Consent: Risks, benefits, and alternatives have been discussed and questions answered. Patient agrees to proceed with procedure. Chief complaint: anemia Narrative: Jim Browne is a 67 year old male Referred to me because of anemia . Patient denies abdominal pain. He has had no bleeding. He states he had a stool Hemoccult that was negative. Recent labs available reveal hemoglobin of 13 hematocrit 38 MCV of 93. Patient denies abdominal pain. His bowel habits are reported to be normal. No obvious bleeding reported. He has no bruising or bleeding elsewhere. Patient had previous colonoscopy 2013 that revealed diverticulosis and internal hemorrhoids. Review of Systems Review of Systems: Review of systems noncontributory. [facility] Past Medical History Medical History Asthma BPH (benign prostatic hyperplasia) Diabetes HTN (hypertension) Hypercholesterolemia Obesity Surgical History Surgical History History of cholecystectomy History of hernia repair History of inguinal hernia repair 05/04/20 Robotic assisted lap removal infected mesh, LIH repair with biologic mesh Hx of spinal surgery Lumbar Surgery L4-5 Family History Family History Father Leukemia Mother Cerebrovascular accident Social History Social History Smoking packs per day: 0.5 Smoking cigarettes per day: 10.0 Years smoked: 20 Smoking pack-years: 10.00 Smoking status: Former smoker Tobacco type: cigarettes Additional smoking assessment comments: quit 1996 Alcohol intake: current Drinks per week: 6 Alcohol use details: occasionally Substance use: never Substance use type: does not use Living arrangements: with family Occupation/Education: occupation Additional occupation/education comments: [employer] Gender identity (if verbalized by the patient): Male Spiritual care concerns: No Meds Home Medications and Allergies Home Medications Medication Instructions Recorded Confirmed Type fluticasone furoate 200 1 inh inhalation HS 01/08/20 01/26/23 History mcg-vilanterol 25 mcg/dose inhalation powder (Breo Ellipta) metformin 500 mg tablet,extended 1,000 mg PO DAILY 01/08/20 01/26/23 History release 24 hr montelukast 10 mg tablet 10 mg PO DAILY 01/08/20 01/26/23 History rosuvastatin 5 mg tablet 5 mg PO DAILY 01/08/20 01/26/23 History tamsulosin 0.4 mg capsule 0.8 mg PO DAILY 01/08/20 01/26/23 History coenzyme Q10 200 mg capsule 200 mg PO DAILY 05/19/20 01/26/23 History amlodipine 10 mg tablet 10 mg PO DAILY 01/16/23 01/26/23 History azelastine 137 mcg (0.1 %) nasal 1 spray intranasal DAILY 01/16/23 01/26/23 History spray aerosol fluticasone propionate 50 1 spray intranasal DAILY 01/16/23 01/26/23 History mcg/actuation nasal spray,suspension ipratropium bromide 42 mcg (0.06 2 spray intranasal DAILY 01/16/23 01/26/23 History %) nasal spray lisinopril 20 2 tablet PO DAILY 01/16/23 01/26/23 History mg-hydrochlorothiazide 12.5 mg tablet Allergies Allergy/AdvReac Type Severity Reaction Status Date / Time Penicillins Allergy Unknown Unknown Verified 01/26/23 08:06 sulfamethoxazole Allergy skin Verified 01/26/23 08:06 [From Bactrim] reaction, burning trimethoprim [From Bactrim] Allergy skin Verified 01/26/23 08:06 reaction, burning Vital Signs Vital Signs - 24 hr 01/26/23 08:09 Temperature 97.4 F L Pulse Rate 64 Respiratory Rate 17 Blood Pressure 150/73 H Pulse Oximetry 99 Oxygen Delivery Room Air Exam Narrative: Physical exam reveals patient to be alert. Vital signs stable. HEENT exam unremarkable. Patient anicteric. Lungs a
--- NOTE | 2023-01-26 08:51 | WPDANESEPPF ---
Anes - Initial Pre Proc Eval Procedure: Operation Date: 01/26/23 09:00 Proposed Procedures p Esophagogastroduodenoscopy & Colonoscopy - Elvin Guillen MD Date/Time: 01/26/23 08:51 Surgeon: Elvin Guillen MD Pre Op Diagnosis: anemia Patient Data Age: 67 Gender: M Height: 1.7 m Weight: 89.4 kg Last Vital Signs Temp 97.4 F L 01/26/23 08:09 Pulse 64 01/26/23 08:09 Resp 17 01/26/23 08:09 BP 150/73 H 01/26/23 08:09 Pulse Ox 99 01/26/23 08:09 O2 Del Method Room Air 01/26/23 08:09 Allergies Allergy/AdvReac Type Severity Reaction Status Date / Time Penicillins Allergy Unknown Unknown Verified 01/26/23 08:06 sulfamethoxazole Allergy skin Verified 01/26/23 08:06 [From Bactrim] reaction, burning trimethoprim [From Bactrim] Allergy skin Verified 01/26/23 08:06 reaction, burning Home Medications Medication Instructions Recorded Confirmed Type fluticasone furoate 200 1 inh inhalation HS 01/08/20 01/26/23 History mcg-vilanterol 25 mcg/dose inhalation powder (Breo Ellipta) metformin 500 mg tablet,extended 1,000 mg PO DAILY 01/08/20 01/26/23 History release 24 hr montelukast 10 mg tablet 10 mg PO DAILY 01/08/20 01/26/23 History rosuvastatin 5 mg tablet 5 mg PO DAILY 01/08/20 01/26/23 History tamsulosin 0.4 mg capsule 0.8 mg PO DAILY 01/08/20 01/26/23 History coenzyme Q10 200 mg capsule 200 mg PO DAILY 05/19/20 01/26/23 History amlodipine 10 mg tablet 10 mg PO DAILY 01/16/23 01/26/23 History azelastine 137 mcg (0.1 %) nasal 1 spray intranasal DAILY 01/16/23 01/26/23 History spray aerosol fluticasone propionate 50 1 spray intranasal DAILY 01/16/23 01/26/23 History mcg/actuation nasal spray,suspension ipratropium bromide 42 mcg (0.06 2 spray intranasal DAILY 01/16/23 01/26/23 History %) nasal spray lisinopril 20 2 tablet PO DAILY 01/16/23 01/26/23 History mg-hydrochlorothiazide 12.5 mg tablet Laboratory Tests 01/26/23 08:13 POC Capillary Glucose 125 H mg/dl (65-105) Patient hx anesthesia problems: none Family hx anesthesia problems: none Results Review: All pre-operative results and documents have been reviewed as part of the pre-operative evaluation. [facility] Past Medical History Medical History Asthma BPH (benign prostatic hyperplasia) Diabetes HTN (hypertension) Hypercholesterolemia Obesity Surgical History Surgical History History of cholecystectomy History of hernia repair History of inguinal hernia repair 05/04/20 Robotic assisted lap removal infected mesh, LIH repair with biologic mesh Hx of spinal surgery Lumbar Surgery L4-5 Family History Family History Father Leukemia Mother Cerebrovascular accident Social History Social History Smoking packs per day: 0.5 Smoking cigarettes per day: 10.0 Years smoked: 20 Smoking pack-years: 10.00 Smoking status: Former smoker Tobacco type: cigarettes Additional smoking assessment comments: quit 1996 Alcohol intake: current Drinks per week: 6 Alcohol use details: occasionally Substance use: never Substance use type: does not use Living arrangements: with family Occupation/Education: occupation Additional occupation/education comments: [employer] Gender identity (if verbalized by the patient): Male Spiritual care concerns: No Anes - Eval Final PreProcedure Day of Procedure 01/26/23 08:51 Patient weight: obese Heart: regular rate and rhythm Lungs: clear to auscultation Airway: Mallampati scale class II Neurological: alert and oriented Last oral intake: >/= 8 hours ASA classification: III Emergent: no Anesthetic plan: proceed Anesthesia type and monitoring: general
--- NOTE | 2023-01-26 09:09 | SUR.OPER ---
EGD ended at 903. Colonoscopy started at 909.
[2023-01-26 09:27] VITALS: BP 88/48; PULSE 52; RESP 12; O2SAT 100
[2023-01-26 09:37] VITALS: BP 104/68; PULSE 48; RESP 12; O2SAT 100
[2023-01-26 09:47] VITALS: BP 107/60; PULSE 60; RESP 18; O2SAT 100
== END 2023-01-26 09:45 | disposition home or self-care (01) ==
PROVIDERS: PCP Internal Medicine; Visit Provider Internal Medicine Gastroenterology
PROC: 0DJ08ZZ Inspection of Upper Intestinal Tract, Via Natural or Artificial Opening Endoscopic (ICD-10-PCS; CPT 43235; principal; 2023-01-26 09:00)
DX: Z12.11 Encounter for screening for malignant neoplasm of colon (principal); D64.9 Anemia, unspecified; D12.3 Benign neoplasm of transverse colon; K63.5 Polyp of colon; K57.30 Diverticulosis of large intestine without perforation or abscess without bleeding; K64.8 Other hemorrhoids; I10 Essential (primary) hypertension; E78.00 Pure hypercholesterolemia, unspecified; J45.909 Unspecified asthma, uncomplicated; N40.0 Benign prostatic hyperplasia without lower urinary tract symptoms; E11.9 Type 2 diabetes mellitus without complications; E66.9 Obesity, unspecified; Z68.30 Body mass index [BMI] 30.0-30.9, adult; Z87.891 Personal history of nicotine dependence; Z79.84 Long term (current) use of oral hypoglycemic drugs
CPT/HCPCS: 45385; 43235; 82948; 88305; J2704; J7120